=== PATIENT | male | born 1965 | race Hispanic/Latino ===

== ENCOUNTER 2016-11-14 06:24 | Day surgery (SDC) | payer MEDICARE ==
--- NOTE | 2016-11-12 11:59 | Anesthesia Consultation ---
Anesthesia Consult and Med Hx Date of service: 11/12/16 - Airway Anesthetic Teeth Evaluation: Poor (4 total broken teeth in the bottom, no teeth on the top) ROM Head & Neck: Adequate Mental/Hyoid Distance: Adequate Mallampati Class: Class III Intubation Access Assessment: Possibly Difficult - Pre-Operative Health Status ASA Pre-Surgery Classification: ASA3 Proposed Anesthetic Plan: MAC - Pulmonary Hx Smoking: Yes (smoked 3 p/d x 15 years) COPD: Yes Hx Sleep Apnea: Yes (uses CPAP) - Cardiovascular System Hx Hypertension: Yes Hx Coronary Artery Disease: No (EF 35-40%) Hx Heart Attack/AMI: No (CHF) Hx Cardia Arrhythmia: Yes (bradicardia) Hx Pacemaker: No - Central Nervous System Hx Seizures: Yes (" MINOR ,LITTLE '') Hx Psychiatric Problems: Yes (depression) - Endocrine Hx Non-Insulin Dependent Diabetes: Yes - Other Systems Hx Cancer: No Hx Obesity: Yes (super obesity BMI 61.8)
[2016-11-12 12:32] LABS: Basophils % (Auto) 0.3 % (0.0-1.8); Eosinophils % (Auto) 1.2 % (0.0-4.3); Hemoglobin 15.2 gm/dl (11.8-15.2); Mean Corpuscular HGB Conc 32 % (32-34); Mean Corpuscular Hemoglobin 29 pg (28-32); Mean Corpuscular Volume 88 fl (84-94); Platelet Count 107 K/mm3 (140-440); Red Blood Count 5.33 M/mm3 (3.65-5.03); White Blood Count 5.1 K/mm3 (4.5-11.0)
[2016-11-12 12:42] LABS: INR 1.11 (0.87-1.13)
[2016-11-12 12:43] LABS: Partial Thromboplastin Time 26.8 Sec. (24.2-36.6)
[2016-11-12 12:50] LABS: Alanine Aminotransferase 18 units/L (7-56); Albumin 3.4 g/dL (3.9-5); Albumin/Globulin Ratio 1.2 %; Alkaline Phosphatase 67 units/L (35-129); Anion Gap 16 mmol/L; BUN/Creatinine Ratio 13.75; Bilirubin,Total 0.5 mg/dL (0.1-1.2); Blood Urea Nitrogen 11 mg/dL (9-20); Calcium 8.6 mg/dL (8.4-10.2); Carbon Dioxide 24 mmol/L (22-30); Chloride 101.9 mmol/L (98-107); Glucose 403 mg/dL (75-100); Sodium 138 mmol/L (137-145); Total Protein 6.3 g/dL (6.3-8.2)
[~2016-11-14 06:24] MED LIST: ANCEF/STERILE WATER 2 GM/20 ML 2 GM/20 ML SYRINGE IV SCH; NACL 0.9% 1000 ML 1,000 ML IV SCH; NACL BACTERIOSTATIC INFILTRATI ONE; PEPCID IV NR; VERSED IV NR; ceFAZolin 2 GM in NACL 0.9% 100 ML IV ONE
[2016-11-14] MEDS ORDERED: DIPRIVAN 10 MG/ML IV ONE ×2 (06:47→07:58)
[2016-11-14] MEDS ORDERED: DILAUDID ONE (06:48)
[2016-11-14] MEDS ORDERED: VERSED ONE (06:48)
[2016-11-14] MEDS ORDERED: XYLOCAINE 1%/ EPI 1:100,000 INFILTRATI ONE ×2 (07:19→07:58)
[2016-11-14] MEDS ORDERED: MARCAINE 0.5% 30 ML INFILTRATI ONE (07:20)
--- NOTE | 2016-11-14 07:21 | Anesthesia Day of Surgery ---
Anesthesia Day of Surgery - Day of Surgery Patient Examined: Yes Patient H&P Reviewed: Yes Patient is NPO: Yes Beta Blockers: Yes Cardiac Clearance: Yes
[2016-11-14] MEDS ORDERED: MARCAINE 0.5% INFILTRATI ONE (07:58)
[2016-11-14] MEDS ORDERED: NACL 0.9% IR ONE (07:58)
[2016-11-14] MEDS ORDERED: XYLOCAINE MPF 2% ONE (08:18)
--- NOTE | 2016-11-14 08:26 | Discharge Summary ---
Short Stay Discharge Plan Activity: other (d/c when stable. 1999 roopa ADA diet. home health for local care. d/c packing Mon am. irrigate with 50% h202/NS momo. pack with mesalt qd) Weight Bearing Status: Full Weight Bearing Diet: other Wound: per wound nurse instructions Additional Instructions: aleve 1 po q 6-8 hrs prn for breakthrough pain Follow up with: RADHA MIGUEL MD [Staff Physician] - 11/19/16
[2016-11-14] MEDS ORDERED: ULTRAM PO PRN (09:46)
[2016-11-14 09:50] VITALS: BP 139/73
--- NOTE | 2016-11-14 09:54 | Operative Report ---
PREOPERATIVE DIAGNOSES: Infected back abscesses x 2, rule out infected sebaceous cyst, pending final pathology. POSTOPERATIVE DIAGNOSES: Infected back abscesses x 2, rule out infected sebaceous cyst, pending final pathology. PROCEDURE PERFORMED: I and D, debridement and packing of infected back nodules. SURGEON: Frederick Villafana M.D. ANESTHESIA: Local anesthetic with IV sedation. COMPLICATIONS: No complications. DESCRIPTION OF PROCEDURE: The patient was taken to the operating room, prepped and draped in usual sterile fashion. Both erythematous draining indurated nodules had been outlined with marking pencil. A 50% solution of 1% Xylocaine with epinephrine and 0.5% Marcaine plain was infiltrated over the area to be incised. Both nodules were removed in similar fashion. An 11 blade was used to incise the skin. Jagruti retractors were used to retract the skin. Needle tip electrocautery was used to dissect the nodules. During dissection, some purulence was noted. Aerobic and anaerobic cultures were taken. Both vessels were also sent fresh for tissue cultures and permanent pathology. The abscess cavities were irrigated copiously with saline and dried. Checked for hemostasis and noted to be dry. Both cavities were then packed with 2 inch iodoform gauze. Fluff and pressure dressings applied. The patient tolerated the procedure well and left the OR in stable condition. JOB# [id number] NOHEMY/YNES
--- NOTE | 2016-11-14 10:50 | Post Anesthesia Evaluation ---
- Post Anesthesia Evaluation Patient Participated: Yes Airway Patent: Yes Stable Respiratory Function: Yes Nausea/Vomiting: No Temp > 96.8F: Yes Pain Manageable: Yes Adequeate Hydration: Yes Anesthesia Complications: No
== END 2016-11-14 10:25 | disposition swing bed (61) ==
LOC: OR 06:24
PROVIDERS: ATTEND Surgery
DX: L02.212 Cutaneous abscess of back [any part, except buttock and flank] (principal); J44.9 Chronic obstructive pulmonary disease, unspecified; I48.91 Unspecified atrial fibrillation; F17.210 Nicotine dependence, cigarettes, uncomplicated; G47.30 Sleep apnea, unspecified; F32.9 Major depressive disorder, single episode, unspecified; E11.9 Type 2 diabetes mellitus without complications; E66.01 Morbid (severe) obesity due to excess calories; Z68.44 Body mass index [BMI] 60.0-69.9, adult
CPT/HCPCS: 10060; 36415; 80053; 82962; 85025; 85610; 85730; 87075; 87076; 87116; 87185; 87186; 88305; J0690; J1170; J2250; J2704; J7030; 88307; J1815

== ENCOUNTER 2017-10-01 12:04 | Inpatient (IN) | payer MEDICARE ==
[2017-10-01] MEDS ORDERED: ASPIRIN PO ONE (13:26)
--- NOTE | 2017-10-01 13:26 | Emergency Department Report ---
Blank Doc - Documentation Documentation: Patient is a 52-year-old male past medical history of diabetes hypertension and A. fib who is complaining of chest pain radiation to the left neck and arm. Patient states he occasionally gets chest discomfort with exertion that last just very briefly but since last night has had continuous chest discomfort also has some tingling in his bilateral legs as well. EKG shows A. fib with no STEMI. Patient removed to the main for further care.
[2017-10-01 13:46] LABS: Basophils % (Auto) 0.5 % (0.0-1.8); Eosinophils % (Auto) 0.7 % (0.0-4.3); Hematocrit 46.6 % (35.5-45.6); Lymphocytes # (Auto) 1.9 K/mm3 (1.2-5.4); Lymphocytes % (Auto) 28.7 % (13.4-35.0); Mean Corpuscular HGB Conc 32 % (32-34); Mean Corpuscular Hemoglobin 29 pg (28-32); Mean Corpuscular Volume 89 fl (84-94); Monocytes # (Auto) 0.7 K/mm3 (0.0-0.8); Monocytes % (Auto) 10.4 % (0.0-7.3); Platelet Count 127 K/mm3 (140-440); Red Blood Count 5.25 M/mm3 (3.65-5.03); Red Cell Distribution Width 14.8 % (13.2-15.2)
--- NOTE | 2017-10-01 13:59 | XRay Report ---
CHEST XRAY, 2 VIEWS: History: Chest pain. Findings: There is mild cardiomegaly. Pulmonary vessels are within normal limits. The lungs are clear and fully expanded. No infiltrate, pleural effusion or pneumothorax. Normal thoracic cage. IMPRESSION: Mild cardiomegaly.
[2017-10-01 14:00] LABS: Partial Thromboplastin Time 38.4 Sec. (24.2-36.6)
[2017-10-01 14:02] LABS: Alanine Aminotransferase 12 units/L (7-56); Albumin 3.3 g/dL (3.9-5); BUN/Creatinine Ratio 12; Blood Urea Nitrogen 13 mg/dL (9-20); Calcium 8.2 mg/dL (8.4-10.2); Hemolysis Index 53
[2017-10-01 14:04] LABS: INR 1.92 (0.87-1.13)
--- NOTE | 2017-10-01 17:59 | Emergency Department Report ---
ED Chest Pain HPI - General Chief Complaint: Chest Pain Stated Complaint: CPERNESTO Time Seen by Provider: 10/01/17 13:20 Source: patient Mode of arrival: Ambulatory Limitations: No Limitations - History of Present Illness Initial Comments: Patient is a 52-year-old male with a history of diabetes and A. fib who is presenting with chest pain. Patient states he normally will have some very mild chest pain last only seconds with exertion however since the last 24 hours he's had a heavy pressure in the chest that he states is a 7 out of 10 in severity with radiation to left neck and left arm. Patient also has some shortness of breath as well Quality: tightness, aching Improves With: nothing Worsens With: nothing - Related Data Home Medications Medication Instructions Recorded Confirmed Last Taken Amiodarone [Cordarone 200 MG TAB] 200 mg PO DAILY 07/03/16 11/11/16 11/13/16 18: 00 Carvedilol [Coreg] 6.25 mg PO BID 07/03/16 11/11/16 11/14/16 05:00 Digoxin 250 mcg PO DAILY 07/03/16 11/11/16 11/13/16 18:00 Fluticasone Propionate [Flovent 1 puff IH BID PRN 07/03/16 11/11/16 11/14/16 05: 00 Diskus] LORazepam [Ativan] 1 mg PO BID 07/03/16 11/11/16 11/14/16 05:00 Loratadine 10 mg PO DAILY 07/03/16 11/11/16 11/14/16 05:00 Nitroglycerin [Nitro Dur] 0.2 mg TD PRN PRN 07/03/16 11/14/16 06/10/16 Pravastatin Sodium [Pravastatin] 40 mg PO QHS 07/03/16 11/11/16 11/13/16 18:00 Torsemide [Demadex] 20 mg PO BID 07/03/16 11/11/16 11/13/16 18:00 Warfarin [Coumadin] 7.5 mg PO QDAY 07/03/16 11/14/16 11/07/16 hydrALAZINE [Apresoline TAB] 100 mg PO TID 07/03/16 11/11/16 11/14/16 05:00 Latanoprost 0.005% [Xalatan 0.005%] 1 drop OP QPM 11/11/16 11/14/16 11/13/16 18: 00 Sacubitril/Valsartan [Entresto 97 1 each PO QDAY 11/12/16 11/12/16 11/14/16 05: 00 mg-103 mg Tablet] Previous Rx's Medication Instructions Recorded Last Taken Type traMADol [Ultram 50 MG tab] 50 mg PO Q4HR PRN #20 tablet 11/14/16 Unknown Rx Allergies Allergy/AdvReac Type Severity Reaction Status Date / Time oxycodone Allergy Itching Verified 03/24/15 11:24 codeine AdvReac Itching Verified 03/24/15 11:24 Heart Score - HEART Score History: Highly suspicious EKG: Non-specific Age: 45-65 Risk factors: 1-2 risk factors Troponin: < normal limit HEART Score: 5 ED Review of Systems ROS: Stated complaint: CP, ERNESTO Other details as noted in HPI Comment: All other systems reviewed and negative ED Past Medical Hx - Past Medical History Hx Hypertension: Yes Hx Heart Attack/AMI: No (CHF) Hx Congestive Heart Failure: Yes Hx Diabetes: Yes (5 YRS) Hx GERD: Yes Hx Headaches / Migraines: Yes (MIGRAINES) Hx Seizures: Yes (" MINOR ,LITTLE '') Hx Kidney Stones: Yes Hx COPD: Yes Hx HIV: No Additional medical history: PAT. Chronic bilateral lower leg edema. Sleep apnea with C Pap. OBESITY - Surgical History Past Surgical History?: Yes Hx Pacemaker: No Additional Surgical History: kidney stone removal - Social History Smoking Status: Former Smoker Substance Use Type: Alcohol - Medications Home Medications: Home Medications Medication Instructions Recorded Confirmed Last Taken Type Amiodarone [Cordarone 200 MG TAB] 200 mg PO DAILY 07/03/16 11/11/16 11/13/16 18: 00 History Carvedilol [Coreg] 6.25 mg PO BID 07/03/16 11/11/16 11/14/16 05:00 History Digoxin 250 mcg PO DAILY 07/03/16 11/11/16 11/13/16 18:00 History Fluticasone Propionate [Flovent 1 puff IH BID PRN 07/03/16 11/11/16 11/14/16 05: 00 History Diskus] LORazepam [Ativan] 1 mg PO BID 07/03/16 11/11/1611/14/17 05:00 History Loratadine 10 mg PO DAILY 07/03/16 11/11/16 11/14/16 05:00 History Nitroglycerin [Nitro Dur] 0.2 mg TD PRN PRN 07/03/16 11/14/16 06/10/16 History Pravastatin Sodium [Pravastatin] 40 mg PO QHS 07/03/16 11/11/16 11/13/16 18:00 History Torsemide [Demadex] 20 mg PO BID 07/03/16 11/11/16 11/13/16 18:00 History Warfarin [Coumadin] 7.5 mg PO QDAY 07/03/16 11/14/16 11/07/16 History hydrALAZINE [Apresoline TAB] 100 mg PO TID 07/03/16 11/11/16 11/14/16 05:00 History Latanoprost 0.005% [Xalatan 0.005%] 1 drop OP QPM 11/11/16 11/14/16 11/13/16 18: 00 History Sacubitril/Valsartan [Entresto 97 1 each PO QDAY 11/12/16 11/12/16 11/14/16 05: 00 History mg-103 mg Tablet] traMADol [Ultram 50 MG tab] 50 mg PO Q4HR PRN #20 tablet 11/14/16 Unknown Rx ED Physical Exam - General Limitations: No Limitations General appearance: alert, in no apparent distress - Head Head exam: Present: atraumatic, normocephalic - Eye Eye exam: Present: normal appearance - ENT ENT exam: Present: mucous membranes moist - Neck Neck exam: Present: normal inspection - Respiratory Respiratory exam: Present: normal lung sounds bilaterally. Absent: respiratory distress, wheezes, rales, rhonchi - Cardiovascular Cardiovascular Exam: Present: regular rate, irregular rhythm. Absent: systolic murmur, diastolic murmur, rubs, gallop - GI/Abdominal GI/Abdominal exam: Present: soft, normal bowel sounds - Rectal Rectal exam: Present: deferred - Extremities Exam Extremities exam: Present: normal inspection - Back Exam Back exam: Present: normal inspection - Neurological Exam Neurological exam: Present: alert, oriented X3 - Psychiatric Psychiatric exam: Present: normal affect, normal mood - Skin Skin exam: Present: warm, dry, intact, normal color. Absent: rash ED Course Vital Signs 10/01/17 12:32 Temperature 98.3 F Pulse Rate 75 Respiratory 16 Rate Blood Pressure 112/70 O2 Sat by Pulse 93 Oximetry MO score - Mo Score Age > 65: (0) No Aspirin use within the Past 7 Days: (0) No 3 or more CAD Risk Factors: (1) Yes 2 or more Angina events in past 24 hrs: (0) No Known CAD with more than 50% Stenosis: (1) Yes Elevated Cardiac Markers: (0) No ST Deviation Greater than 0.5mm: (0) No MO Score: 2 ED Medical Decision Making - Lab Data Result diagrams: 10/01/17 13:29 10/01/17 13:29 - Medical Decision Making She was initially screened but was not sent over to the main please see my screening note. Patient's R studies are back and patient will be admitted to Dr. Johnston the hospitalist service for continued care Critical care attestation.: If time is entered above; I have spent that time in minutes in the direct care of this critically ill patient, excluding procedure time. ED Disposition Clinical Impression: Chest pain Qualifiers: Chest pain type: chest pain due to myocardial ischemia Ischemic chest pain type : unspecified angina pectoris type Qualified Code(s): I20.9 - Angina pectoris, unspecified Disposition: -09 OP ADMIT IP TO THIS HOSP Is pt being admited?: Yes Does the pt Need Aspirin: No Condition: Stable Instructions: Chest Pain (ED) Referrals: PRIMARY CARE, [Primary Care Provider] - 3-5 Days
--- NOTE | 2017-10-01 18:24 | History and Physical Report ---
History of Present Illness Chief complaint: My chest hurts History of present illness: 52 YO Male with MO, HTN, Atrial Fib, COPD, Systolic CHF with EF of 30%, GERD, Seizure Disorder, Migraine Headache, COPD, AILEEN, DM presents to ED for evaluation. Pt states that he has experienced pain in his chest for the past 1 day with worsening symptoms over the past 6 hours. Pt states that his chest pain is 7/10, Substernal, Radiates to his left arm and neck, associated with shortness of breath, worsens with exertion, no improved with rest. Pt denies fever, chills, Palpitations, NVD, Syncope, Productive cough, Prolonged immobility/travel, Individual/Family history of DVT/PE, Trauma, Hemoptysis, BRBPR, Unintentional weight loss, night sweats, heavy lifting, or recent ill contacts. Pt seen and evaluated in ED and found to have CHF Decompensation, as well as Angina at rest. Pt Admitted to telemetry. Past History Past Medical History: atrial fib, COPD, diabetes, GERD, heart failure, migraines , seizures, other (AILEEN) Past Surgical History: Other (Kidney stone extraction) Social history: , lives with family. denies: smoking, alcohol abuse, prescription drug abuse Family history: diabetes, hypertension Medications and Allergies Allergies Allergy/AdvReac Type Severity Reaction Status Date / Time oxycodone Allergy Itching Verified 03/24/15 11:24 codeine AdvReac Itching Verified 03/24/15 11:24 Home Medications Medication Instructions Recorded Confirmed Last Taken Type Amiodarone [Cordarone 200 MG TAB] 200 mg PO DAILY 07/03/16 10/01/17 09/30/17 History Carvedilol [Coreg] 6.25 mg PO BID 07/03/16 10/01/17 10/01/17 History Digoxin 250 mcg PO QPM 07/03/16 10/01/17 09/30/17 History Fluticasone Propionate [Flovent 1 puff IH BID PRN 07/03/16 10/01/17 10/01/17 History Diskus] LORazepam [Ativan] 1 mg PO BID 07/03/16 10/01/17 10/01/17 History Pravastatin Sodium [Pravastatin] 40 mg PO QPM 07/03/16 10/01/17 09/30/17 History Torsemide [Demadex] 20 mg PO BID 07/03/16 10/01/17 10/01/17 History Warfarin [Coumadin] 7.5 mg PO DAILY 07/03/16 10/01/17 09/30/17 History hydrALAZINE [Apresoline TAB] 100 mg PO TID 07/03/16 10/01/17 10/01/17 History Sacubitril/Valsartan [Entresto 97 1 each PO BID 11/12/16 10/01/17 10/01/17 History mg-103 mg Tablet] Insulin Aspart Protam & Aspart 60 unit SQ TID 10/01/17 10/01/17 10/01/17 History [NovoLOG Mix 70-30 Flexpen] Review of Systems Constitutional: no weight loss, no weight gain, no fever, no chills Ears, nose, mouth and throat: no ear pain, no ear discharge, no tinnitis, no decreased hearing, no nose pain Cardiovascular: chest pain, shortness of breath, no orthopnea, no palpitations, no rapid/irregular heart beat Respiratory: no cough, no cough with sputum, no excessive sputum, no hemoptysis Gastrointestinal: no abdominal pain, no nausea, no vomiting, no diarrhea, no constipation Genitourinary Male: no dysuria, no hematuria, no urinary frequency, no urinary hesitancy Rectal: no pain, no incontinence, no bleeding Musculoskeletal: no neck pain, no shooting arm pain, no arm numbness/tingling, no low back pain Integumentary: no rash, no pruritis, no redness, no sores, no wounds Neurological: no head injury, no transient paralysis, no paralysis, no weakness , no parathesias, no numbness, no tingling Psychiatric: no anxiety, no memory loss, no change in sleep habits, no sleep disturbances, no insomnia, no hypersomnia Endocrine: no cold intolerance, no heat intolerance, no polyphagia, no excessive thirst, no polydipsia, no polyuria Hematologic/Lymphatic: no easy bruising, no easy bleeding, no lymphadenopathy, no lymphedema Allergic/Immunologic: no urticaria, no allergic rhinitis, no wheezing, no persistent infections, no anaphylaxis, no angioedema Exam - Constitutional Vitals: Temp Pulse Resp BP Pulse Ox 98.3 F 75 22 112/70 99 10/01/17 12:32 10/01/17 12:32 10/01/17 18:04 10/01/17 12:32 10/01/17 18:04 General appearance: Present: mild distress, obese - EENT Eyes: Present: PERRL ENT: hearing intact, clear oral mucosa - Neck Neck: Present: supple, normal ROM - Respiratory Respiratory effort: normal Respiratory: bilateral: CTA - Cardiovascular Rhythm: irregularly irregular - Extremities Extremities: pulses symmetrical, No edema Extremity abnormal: edema Peripheral Pulses: within normal limits - Abdominal General gastrointestinal: Present: soft, non-tender, non-distended, normal bowel sounds Male genitourinary: Present: normal - Integumentary Integumentary: Present: clear, warm, dry - Musculoskeletal Musculoskeletal: gait normal, strength equal bilaterally - Psychiatric Psychiatric: appropriate mood/affect, intact judgment & insight - Neurologic Neurologic: CNII-XII intact, moves all extremities Results - Labs CBC & Chem 7: 10/01/17 13:29 10/01/17 13:29 Labs: Abnormal lab results 10/01/17 10/01/17 10/01/17 Range/Units 13:29 13:29 13:29 RBC 5.25 H (3.65-5.03) M/mm3 Hct 46.6 H (35.5-45.6) % Plt Count 127 L (140-440) K/mm3 [place] % (Auto) 10.4 H (0.0-7.3) % PT 23.2 H (12.2-14.9) Sec. INR 1.92 H (0.87-1.13) APTT 38.4 H (24.2-36.6) Sec. Glucose 260 H (75-100) mg/dL Calcium 8.2 L (8.4-10.2) mg/dL NT-Pro-B Natriuret Pep 1362 H (0-900) pg/mL Albumin 3.3 L (3.9-5) g/dL Assessment and Plan - Patient Problems (1) Systolic CHF, acute Current Visit: Yes Status: Acute Plan to address problem: Afterload reduction, fluid restriction, monitor uop q shift, cardiology consulted, telemetry, serial cardiac enzymes, ekg, supplemental oxygen, (2) Angina at rest Current Visit: Yes Status: Acute Plan to address problem: Serial cardiac enzymes, EKG, NItro tabs, supplemental oxygen, pain control, aspirin. (3) COPD (chronic obstructive pulmonary disease) Current Visit: Yes Status: Acute Plan to address problem: supplemental oxygen, nebs, NIPPV as clinically indicated, pulmonary toilet, (4) Diabetes Current Visit: Yes Status: Acute Plan to address problem: ADA diet, insulin, accu check (5) Morbid obesity with BMI of 50.0-59.9, adult Current Visit: No Status: Chronic Plan to address problem: Balanced diet, incrased physical activity as discharge, outpatient bariatric surgery (6) Sleep apnea Current Visit: No Status: Chronic Plan to address problem: NIPPV, supplemental oxygen, supportive care. (7) Atrial fibrillation Current Visit: Yes Status: Acute Qualifiers: Atrial fibrillation type: chronic Qualified Code(s): I48.2 - Chronic atrial fibrillation Plan to address problem: Rate currently controlled. Continue therapeutic anticoagulation, continue rate control, telemetry monitoring, digoxin level (8) DVT prophylaxis Current Visit: Yes Status: Acute
[2017-10-01] MEDS ORDERED: TYLENOL PO PRN (18:27)
[2017-10-01] MEDS ORDERED: ZOFRAN IV PRN (18:27)
[2017-10-01] MEDS ORDERED: BABY ASPIRIN PO STA (18:27)
[2017-10-01] MEDS ORDERED: NITROSTAT SL PRN (18:27)
[2017-10-01] MEDS ORDERED: SODIUM CHLORIDE FLUSH SYRINGE 10 ML IV PRN (18:27)
[2017-10-01] MEDS ORDERED: NITRO DUR TD PRN (18:32)
[2017-10-01] MEDS ORDERED: NON-FORMULARY (Fluticasone Propionate [Flovent Diskus] 1 PUFF) IH PRN (18:32)
[2017-10-01] MEDS ORDERED: ULTRAM PO PRN (18:32)
[2017-10-01] MEDS: APRESOLINE PO SCH (20:21)
[2017-10-01] MEDS ORDERED: NON-FORMULARY (Pravastatin Sodium [Pravastatin] 40 MG) PO SCH (22:00)
[2017-10-01] MEDS: PRAVACHOL PO SCH (22:50)
[2017-10-01] MEDS: COREG PO SCH (22:50)
[2017-10-01] MEDS: ATIVAN PO SCH (22:50)
[2017-10-02] MEDS ORDERED: DEMADEX PO SCH (06:00)
[2017-10-02] MEDS: PULMICORT IH SCH ×2 (07:40→19:52)
[2017-10-02] MEDS: PROVENTIL IH PRN (07:40)
[2017-10-02] MEDS: APRESOLINE PO SCH ×3 (08:24→21:17)
[2017-10-02] MEDS ORDERED: NON-FORMULARY (Sacubitril/Valsartan [Entresto 97 Mg-103 Mg Tablet] 1 EACH) PO SCH (10:00)
[2017-10-02] MEDS: CORDARONE PO SCH (10:18)
[2017-10-02] MEDS: COREG PO SCH ×2 (10:19→21:18)
[2017-10-02] MEDS: CLARITIN PO SCH (10:19)
[2017-10-02] MEDS: LANOXIN PO SCH (10:19)
[2017-10-02] MEDS: ATIVAN PO SCH ×2 (10:19→21:18)
--- NOTE | 2017-10-02 10:48 | Consultation ---
History of Present Illness Consult date: 10/02/17 Consult reason: congestive heart failure History of present illness: This is a 52yr old morbidly obese male who presents with complaints of shortness of breath. Patient reports worsening shortness of breath with minimal exertion and intermittent chest pain, Patient has a history of diabetes and admits to 35lb weight gain since initiated on insulin. A chest xray reports cardiomegaly but no interstitial edema. Patient also has a history of dilated nonischemic cardiomyopathy, LVEF 30-35%, non-obstructive CAD by cath 2014, paroxysmal afib on coumadin and COPD. His ECG shows atrial fibrillation with a well controlled ventricular rate. INR 1.92 on initial workup. Past History Past Medical History: atrial fib, COPD, diabetes, heart failure, other (AILEEN) Social history: , lives with family Family history: diabetes, hypertension Medications and Allergies Allergies Allergy/AdvReac Type Severity Reaction Status Date / Time oxycodone Allergy Itching Verified 03/24/15 11:24 codeine AdvReac Itching Verified 03/24/15 11:24 Home Medications Medication Instructions Recorded Confirmed Last Taken Type Amiodarone [Cordarone 200 MG TAB] 200 mg PO DAILY 07/03/16 10/01/17 09/30/17 History Carvedilol [Coreg] 6.25 mg PO BID 07/03/16 10/01/17 10/01/17 History Digoxin 250 mcg PO QPM 07/03/16 10/01/17 09/30/17 History Fluticasone Propionate [Flovent 1 puff IH BID PRN 07/03/16 10/01/17 10/01/17 History Diskus] LORazepam [Ativan] 1 mg PO BID 07/03/16 10/01/17 10/01/17 History Pravastatin Sodium [Pravastatin] 40 mg PO QPM 07/03/16 10/01/17 09/30/17 History Torsemide [Demadex] 20 mg PO BID 07/03/16 10/01/17 10/01/17 History Warfarin [Coumadin] 7.5 mg PO DAILY 07/03/16 10/01/17 09/30/17 History hydrALAZINE [Apresoline TAB] 100 mg PO TID 07/03/16 10/01/17 10/01/17 History Sacubitril/Valsartan [Entresto 97 1 each PO BID 11/12/16 10/01/17 10/01/17 History mg-103 mg Tablet] Insulin Aspart Protam & Aspart 60 unit SQ TID 10/01/17 10/01/17 10/01/17 History [NovoLOG Mix 70-30 Flexpen] Active Meds: Active Medications Acetaminophen (Tylenol) 650 mg PO Q4H PRN PRN Reason: Pain MILD(1-3)/Fever >100.5/TORO Albuterol (Proventil) 2.5 mg IH Q4HRT PRN PRN Reason: Shortness Of Breath Last Admin: 10/02/17 07:40 Dose: 2.5 mg Amiodarone HCl (Cordarone) 200 mg PO DAILY [facility] Last Admin: 10/02/17 10:18 Dose: 200 mg Budesonide (Pulmicort) 0.5 mg IH Q12HRT [facility] Last Admin: 10/02/17 07:40 Dose: 0.5 mg Carvedilol (Coreg) 6.25 mg PO BID [facility] Last Admin: 10/02/17 10:19 Dose: 6.25 mg Digoxin (Lanoxin) 0.25 mg PO DAILY [facility] Last Admin: 10/02/17 10:19 Dose: 0.25 mg Hydralazine HCl (Apresoline) 100 mg PO TID [facility] Last Admin: 10/02/17 08:24 Dose: 100 mg Latanoprost (Xalatan 0.005%) 1 drops OD QPM [facility] Loratadine (Claritin) 10 mg PO DAILY [facility] Last Admin: 10/02/17 10:19 Dose: 10 mg Lorazepam (Ativan) 1 mg PO BID [facility] Last Admin: 10/02/17 10:19 Dose: 1 mg Miscellaneous Medication (Sacubitril/Valsartan [Entresto 97 Mg-103 Mg Tablet]) 1 each PO QDAY [facility] Nitroglycerin (Nitrostat) 0.4 mg SL Q5M PRN PRN Reason: Chest Pain Nitroglycerin (Nitro Dur) 0.2 mg TD PRN PRN PRN Reason: Angina Ondansetron HCl (Zofran) 4 mg IV Q8H PRN PRN Reason: N/V unrelieved by Reglan Pravastatin Sodium (Pravachol) 40 mg PO QHS [facility] Last Admin: 10/01/17 22:50 Dose: 40 mg Sodium Chloride (Sodium Chloride Flush Syringe 10 Ml) 10 ml IV PRN PRN PRN Reason: LINE FLUSH Torsemide (Demadex) 20 mg PO BID@0600,1800 CEZAR Last Admin: 10/02/17 06:35 Dose: 20 mg Tramadol HCl (Ultram) 50 mg PO Q4HR PRN PRN Reason: Pain Warfarin Sodium (Coumadin) 7.5 mg PO QDAY@1700 [facility] PRN Reason: Protocol Physical Examination Vital Signs Temp Pulse Resp BP Pulse Ox 98.3 F 75 16 112/70 93 10/01/17 12:32 10/01/17 12:32 10/01/17 12:32 10/01/17 12:32 10/01/17 12:32 General appearance: no acute distress, obese HEENT: Positive: PERRL Cardiac: Positive: irregularly irregular Neuro: Positive: Grossly Intact Extremities: Present: edema Results 10/01/17 13:29 10/01/17 13:29 Cardiac Enzymes 10/01/17 Range/Units 13:29 AST 14 (5-40) units/L Coagulation 10/01/17 Range/Units 13:29 PT 23.2 H (12.2-14.9) Sec. INR 1.92 H (0.87-1.13) APTT 38.4 H (24.2-36.6) Sec. CBC 10/01/17 Range/Units 13:29 WBC 6.7 (4.5-11.0) K/mm3 RBC 5.25 H (3.65-5.03) M/mm3 Hgb 15.0 (11.8-15.2) gm/dl Hct 46.6 H (35.5-45.6) % Plt Count 127 L (140-440) K/mm3 Lymph # 1.9 (1.2-5.4) K/mm3 Petroleum # 0.7 (0.0-0.8) K/mm3 Eos # 0.0 (0.0-0.4) K/mm3 Baso # 0.0 (0.0-0.1) K/mm3 Comprehensive Metabolic Panel 10/01/17 Range/Units 13:29 Sodium 142 (137-145) mmol/L Potassium 4.1 (3.6-5.0) mmol/L Chloride 101.7 (98-107) mmol/L Carbon Dioxide 29 (22-30) mmol/L BUN 13 (9-20) mg/dL Creatinine 1.1 (0.8-1.5) mg/dL Glucose 260 H (75-100) mg/dL Calcium 8.2 L (8.4-10.2) mg/dL AST 14 (5-40) units/L ALT 12 (7-56) units/L Alkaline Phosphatase 58 (35-129) units/L Total Protein 6.5 (6.3-8.2) g/dL Albumin 3.3 L (3.9-5) g/dL Assessment and Plan Atypical chest pain Shortness of breath with minimal exertion C 2014- Luminal irregularities in a left dominant circulation, LVEF 30%, LVEDP 36 mm Hg Dilated Nonischemic cardiomyopathy LVEF 30-35% on echo 2014 Paroxysmal afib on coumadin for oral anticoagulation. INR 1.92 on presentation. COPD DM Hypertension AILEEN
--- NOTE | 2017-10-02 10:56 | Progress Note ---
Assessment and Plan Assessment and plan: 52 YO Male with MO, HTN, Atrial Fib, COPD, Systolic CHF with EF of 30%, GERD, Seizure Disorder, Migraine Headache, COPD, AILEEN, DM with SOB, and chf exacerbation Systolic CHF, acute case dw with cardiology, continue IV lasix, optimize meds chest pain likely due to CHF, continue to rx as stated above COPD (chronic obstructive pulmonary disease) not in exacerbation, nebs prn Acute respiratory failure with hypoxia continue CPAP and oxygen as needed Diabetes SSI, check a1c, add basal and bolus insulin Morbid obesity with BMI of 50.0-59.9, adult Balanced diet, incrased physical activity as discharge, outpatient bariatric surgery Sleep apnea CPAP while asleep Atrial fibrillation with hypercoaguable state Rate currently controlled. Continue therapeutic anticoagulation, continue rate control History Interval history: co sob, patino, and orthopnea, and LE edema no CP, no cough, no sputum no n/v/d Hospitalist Physical - Constitutional Vitals: Temp Pulse Resp BP Pulse Ox 99.8 F H 68 20 148/83 97 10/02/17 04:07 10/02/17 04:08 10/02/17 04:07 10/02/17 04:07 10/02/17 07:40 General appearance: Present: mild distress, obese - EENT Eyes: Present: PERRL ENT: hearing intact - Neck Neck: Present: supple - Respiratory Respiratory effort: labored Respiratory: bilateral: rales - Cardiovascular Rhythm: irregularly irregular Heart Sounds: Present: S1 & S2 - Extremities Extremities: no ischemia Extremity abnormal: edema Peripheral Pulses: within normal limits - Abdominal General gastrointestinal: soft, non-tender - Integumentary Integumentary: Present: clear, warm - Psychiatric Psychiatric: appropriate mood/affect - Neurologic Neurologic: CNII-XII intact, moves all extremities Results - Labs CBC & Chem 7: 10/01/17 13:29 10/03/17 00:05 Labs: Laboratory Last Values WBC 6.7 K/mm3 (4.5-11.0) 10/01/17 13:29 RBC 5.25 M/mm3 (3.65-5.03) H 10/01/17 13:29 Hgb 15.0 gm/dl (11.8-15.2) 10/01/17 13:29 Hct 46.6 % (35.5-45.6) H 10/01/17 13:29 MCV 89 fl (84-94) 10/01/17 13:29 MCH 29 pg (28-32) 10/01/17 13: MCHC 32 % (32-34) 10/01/17 13:29 RDW 14.8 % (13.2-15.2) 10/01/17 13:29 Plt Count 127 K/mm3 (140-440) L 10/01/17 13:29 Lymph % (Auto) 28.7 % (13.4-35.0) 10/01/17 13:29 [place] % (Auto) 10.4 % (0.0-7.3) H 10/01/17 13: Eos % (Auto) 0.7 % (0.0-4.3) 10/01/17 13: Baso % (Auto) 0.5 % (0.0-1.8) 10/01/17 13: Lymph # 1.9 K/mm3 (1.2-5.4) 10/01/17 13: [place] # 0.7 K/mm3 (0.0-0.8) 10/01/17 13: Eos # 0.0 K/mm3 (0.0-0.4) 10/01/17 13: Baso # 0.0 K/mm3 (0.0-0.1) 10/01/17 13:29 Seg Neutrophils % 59.7 % (40.0-70.0) 10/01/17 13: Seg Neutrophils # 4.0 K/mm3 (1.8-7.7) 10/01/17 13:29 PT 23.2 Sec. (12.2-14.9) H 10/01/17 13:29 INR 1.92 (0.87-1.13) H 10/01/17 13:29 APTT 38.4 Sec. (24.2-36.6) H 10/01/17 13:29 Sodium 142 mmol/L (137-145) 10/01/17 13:29 Potassium 4.1 mmol/L (3.6-5.0) 10/01/17 13:29 Chloride 101.7 mmol/L (98-107) 10/01/17 13:29 Carbon Dioxide 29 mmol/L (22-30) 10/01/17 13:29 Anion Gap 15 mmol/L 10/01/17 13:29 BUN 13 mg/dL (9-20) 10/01/17 13:29 Creatinine 1.1 mg/dL (0.8-1.5) 10/01/17 13:29 Estimated GFR > 60 ml/min 10/01/17 13:29 BUN/Creatinine Ratio 12 % 10/01/17 13:29 Glucose 260 mg/dL (75-100) H 10/01/17 13:29 POC Glucose 175 (70-105) H 10/02/17 08:11 Calcium 8.2 mg/dL (8.4-10.2) L 10/01/17 13:29 Total Bilirubin 0.80 mg/dL (0.1-1.2) 10/01/17 13:29 AST 14 units/L (5-40) 10/01/17 13:29 ALT 12 units/L (7-56) 10/01/17 13:29 Alkaline Phosphatase 58 units/L (35-129) 10/01/17 13:29 Troponin T < 0.010 ng/mL (0.00-0.029) 10/02/17 00:20 NT-Pro-B Natriuret Pep 1362 pg/mL (0-900) H 10/01/17 13:29 Total Protein 6.5 g/dL (6.3-8.2) 10/01/17 13:29 Albumin 3.3 g/dL (3.9-5) L 10/01/17 13:29 Albumin/Globulin Ratio 1.0 % 10/01/17 13:29 Digoxin 0.5 ng/mL (0.9-2.0) L 10/02/17 07:25
[2017-10-02] MEDS: K-DUR PO SCH (13:53)
[2017-10-02] MEDS: ZAROXOLYN PO SCH (13:54)
[2017-10-02] MEDS: COUMADIN PO SCH ×2 (17:30→20:25)
[2017-10-02] MEDS: LASIX IV SCH ×2 (18:30→20:25)
[2017-10-02] MEDS: XALATAN 0.005% OD SCH (20:26)
[2017-10-02] MEDS: PRAVACHOL PO SCH (21:17)
[2017-10-03 00:37] LABS: BUN/Creatinine Ratio 13; Blood Urea Nitrogen 15 mg/dL (9-20); Calcium 8.2 mg/dL (8.4-10.2); Hemolysis Index 28
[2017-10-03 06:10] LABS: INR 1.66 (0.87-1.13)
[2017-10-03] MEDS: LASIX IV SCH ×2 (06:14→18:08)
[2017-10-03] MEDS: PROVENTIL IH PRN (08:41)
[2017-10-03] MEDS: PULMICORT IH SCH ×2 (08:41→20:18)
--- NOTE | 2017-10-03 09:06 | Progress Note ---
Assessment and Plan - Patient Problems (1) Angina at rest Current Visit: Yes Status: Acute (2) Atrial fibrillation Current Visit: Yes Status: Acute Qualifiers: Atrial fibrillation type: chronic Qualified Code(s): I48.2 - Chronic atrial fibrillation (3) COPD (chronic obstructive pulmonary disease) Current Visit: Yes Status: Acute (4) Diabetes Current Visit: Yes Status: Acute (5) Cardiomyopathy Current Visit: No Status: Chronic (6) HTN (hypertension), benign Current Visit: No Status: Chronic (7) Morbid obesity with BMI of 50.0-59.9, adult Current Visit: No Status: Chronic (8) AILEEN on CPAP Current Visit: No Status: Chronic Subjective Date of service: 10/03/17 Interval history: FEELS BETTER Objective Vital Signs Temp Pulse Pulse Resp Resp BP Pulse Ox 10/03/17 05:23 97.4 F L 70 20 131/77 97 10/03/17 00:00 65 10/02/17 23:10 98.7 F 69 20 139/87 93 10/02/17 22:35 80 20 95 10/02/17 22:00 20 10/02/17 20:39 97.5 F L 66 20 144/87 92 10/02/17 19:57 66 18 10/02/17 19:52 66 18 95 10/02/17 17:54 98.0 F 82 22 169/96 95 10/02/17 11:50 97.8 F 63 24 117/65 94 - Physical Examination General: No Apparent Distress HEENT: Positive: PERRL Neck: Positive: neck supple Cardiac: Positive: Irregularly Regular Lungs: Positive: clear to auscultation Neuro: Positive: Grossly Intact Abdomen: Positive: Soft Extremities: Present: edema (MILD) - Labs and Meds Coagulation 10/03/17 Range/Units 05:02 PT 20.6 H (12.2-14.9) Sec. INR 1.66 H (0.87-1.13) Comprehensive Metabolic Panel 10/03/17 Range/Units 00:05 Sodium 138 (137-145) mmol/L Potassium 3.7 (3.6-5.0) mmol/L Chloride 96.8 L (98-107) mmol/L Carbon Dioxide 26 (22-30) mmol/L BUN 15 (9-20) mg/dL Creatinine 1.2 (0.8-1.5) mg/dL Glucose 268 H (75-100) mg/dL Calcium 8.2 L (8.4-10.2) mg/dL
[2017-10-03] MEDS: COREG PO SCH ×2 (10:14→21:27)
[2017-10-03] MEDS: CORDARONE PO SCH (10:14)
[2017-10-03] MEDS: CLARITIN PO SCH (10:15)
[2017-10-03] MEDS: ZAROXOLYN PO SCH (10:15)
[2017-10-03] MEDS: LANOXIN PO SCH (10:15)
[2017-10-03] MEDS: K-DUR PO SCH (10:15)
[2017-10-03] MEDS: APRESOLINE PO SCH ×3 (10:15→21:27)
[2017-10-03] MEDS: ATIVAN PO SCH ×2 (10:16→21:27)
--- NOTE | 2017-10-03 12:58 | Progress Note ---
Assessment and Plan Assessment and plan: 52 YO Male with MO, HTN, Atrial Fib, COPD, Systolic CHF with EF of 30%, GERD, Seizure Disorder, Migraine Headache, COPD, AILEEN, DM with SOB, and chf exacerbation Systolic CHF, acute case dw with cardiology, continue IV lasix, optimize meds chest pain likely due to CHF, continue to rx as stated above COPD (chronic obstructive pulmonary disease) not in exacerbation, nebs prn Acute respiratory failure with hypoxia continue CPAP and oxygen as needed Diabetes SSI, check a1c, add basal and bolus insulin Morbid obesity with BMI of 50.0-59.9, adult Balanced diet, incrased physical activity as discharge, outpatient bariatric surgery Sleep apnea CPAP while asleep Atrial fibrillation with hypercoaguable state Rate currently controlled. Continue therapeutic anticoagulation, continue rate control History Interval history: co sob, patino, and orthopnea, and LE edema no CP, no cough, no sputum no n/v/d Hospitalist Physical - Physical exam Narrative exam: General appearance: Present: mild distress, obese - EENT Eyes: Present: PERRL ENT: hearing intact - Neck Neck: Present: supple - Respiratory Respiratory effort: labored Respiratory: bilateral: rales - Cardiovascular Rhythm: irregularly irregular Heart Sounds: Present: S1 & S2 - Extremities Extremities: no ischemia Extremity abnormal: edema Peripheral Pulses: within normal limits - Abdominal General gastrointestinal: soft, non-tender - Integumentary Integumentary: Present: clear, warm - Psychiatric Psychiatric: appropriate mood/affect - Neurologic Neurologic: CNII-XII intact, moves all extremities - Constitutional Vitals: Temp Pulse Resp BP Pulse Ox 97.7 F 88 18 130/71 94 10/03/17 09:09 10/03/17 10:15 10/03/17 09:09 10/03/17 10:15 10/03/17 09:09 General appearance: Present: no acute distress, obese Results - Labs CBC & Chem 7: 10/01/17 13:29 10/03/17 00:05 Labs: Laboratory Last Values WBC 6.7 K/mm3 (4.5-11.0) 10/01/17 13:29 RBC 5.25 M/mm3 (3.65-5.03) H 10/01/17 13:29 Hgb 15.0 gm/dl (11.8-15.2) 10/01/17 13:29 Hct 46.6 % (35.5-45.6) H 10/01/17 13: MCV 89 fl (84-94) 10/01/17 13: MCH 29 pg (28-32) 10/01/17 13:29 MCHC 32 % (32-34) 10/01/17 13: RDW 14.8 % (13.2-15.2) 10/01/17 13:29 Plt Count 127 K/mm3 (140-440) L 10/01/17 13:29 Lymph % (Auto) 28.7 % (13.4-35.0) 10/01/17 13:29 [place] % (Auto) 10.4 % (0.0-7.3) H 10/01/17 13: Eos % (Auto) 0.7 % (0.0-4.3) 10/01/17 13: Baso % (Auto) 0.5 % (0.0-1.8) 10/01/17 13: Lymph # 1.9 K/mm3 (1.2-5.4) 10/01/17 13:29 [place] # 0.7 K/mm3 (0.0-0.8) 10/01/17 13: Eos # 0.0 K/mm3 (0.0-0.4) 10/01/17 13: Baso # 0.0 K/mm3 (0.0-0.1) 10/01/17 13: Seg Neutrophils % 59.7 % (40.0-70.0) 10/01/17 13: Seg Neutrophils # 4.0 K/mm3 (1.8-7.7) 10/01/17 13:29 PT 20.6 Sec. (12.2-14.9) H 10/03/17 05:02 INR 1.66 (0.87-1.13) H 10/03/17 05:02 APTT 38.4 Sec. (24.2-36.6) H 10/01/17 13:29 Sodium 138 mmol/L (137-145) 10/03/17 00:05 Potassium 3.7 mmol/L (3.6-5.0) 10/03/17 00:05 Chloride 96.8 mmol/L (98-107) L 10/03/17 00:05 Carbon Dioxide 26 mmol/L (22-30) 10/03/17 00:05 Anion Gap 19 mmol/L 10/03/17 00:05 BUN 15 mg/dL (9-20) 10/03/17 00:05 Creatinine 1.2 mg/dL (0.8-1.5) 10/03/17 00:05 Estimated GFR > 60 ml/min 10/03/17 00:05 BUN/Creatinine Ratio 13 % 10/03/17 00:05 Glucose 268 mg/dL (75-100) H 10/03/17 00:05 POC Glucose 249 (70-105) H 10/03/17 12:17 Calcium 8.2 mg/dL (8.4-10.2) L 10/03/17 00:05 Total Bilirubin 0.80 mg/dL (0.1-1.2) 10/01/17 13:29 AST 14 units/L (5-40) 10/01/17 13:29 ALT 12 units/L (7-56) 10/01/17 13:29 Alkaline Phosphatase 58 units/L (35-129) 10/01/17 13:29 Troponin T < 0.010 ng/mL (0.00-0.029) 10/02/17 00:20 NT-Pro-B Natriuret Pep 1362 pg/mL (0-900) H 10/01/17 13:29 Total Protein 6.5 g/dL (6.3-8.2) 10/01/17 13:29 Albumin 3.3 g/dL (3.9-5) L 10/01/17 13:29 Albumin/Globulin Ratio 1.0 % 10/01/17 13:29 Digoxin 0.5 ng/mL (0.9-2.0) L 10/02/17 07:25
[2017-10-03] MEDS: COUMADIN PO SCH (18:08)
[2017-10-03] MEDS: XALATAN 0.005% OD SCH (19:24)
[2017-10-03] MEDS: NOVOLOG SUB-Q SCH (21:27)
[2017-10-03] MEDS: PRAVACHOL PO SCH (21:27)
[2017-10-03] MEDS ORDERED: D50W (25GM) Syringe IV PRN (23:48)
[2017-10-04 05:58] LABS: Basophils % (Auto) 0.5 % (0.0-1.8); Eosinophils # (Auto) 0.1 K/mm3 (0.0-0.4); Eosinophils % (Auto) 1.1 % (0.0-4.3); Hematocrit 48.3 % (35.5-45.6); Hemoglobin 15.5 gm/dl (11.8-15.2); Lymphocytes % (Auto) 29.8 % (13.4-35.0); Mean Corpuscular HGB Conc 32 % (32-34); Mean Corpuscular Hemoglobin 28 pg (28-32); Mean Corpuscular Volume 88 fl (84-94); Monocytes # (Auto) 0.6 K/mm3 (0.0-0.8); Platelet Count 159 K/mm3 (140-440); Red Blood Count 5.49 M/mm3 (3.65-5.03); Red Cell Distribution Width 14.5 % (13.2-15.2)
[2017-10-04 06:11] LABS: Calcium 9.1 mg/dL (8.4-10.2)
[2017-10-04 06:23] LABS: INR 1.63 (0.87-1.13)
[2017-10-04] MEDS: LASIX IV SCH ×2 (06:32→18:19)
[2017-10-04] MEDS ORDERED: NOVOLOG SUB-Q SCH (07:30)
[2017-10-04] MEDS: NOVOLOG SUB-Q SCH ×6 (09:01→22:05)
[2017-10-04] MEDS: APRESOLINE PO SCH ×3 (09:02→22:00)
[2017-10-04] MEDS: LANOXIN PO SCH (09:02)
[2017-10-04] MEDS: CLARITIN PO SCH (09:03)
[2017-10-04] MEDS: ZAROXOLYN PO SCH (09:03)
[2017-10-04] MEDS: K-DUR PO SCH ×3 (09:03→22:00)
[2017-10-04] MEDS: COREG PO SCH ×2 (09:03→22:00)
[2017-10-04] MEDS: ATIVAN PO SCH ×2 (09:04→22:00)
[2017-10-04] MEDS: CORDARONE PO SCH (09:04)
[2017-10-04] MEDS: PULMICORT IH SCH ×2 (09:21→20:52)
--- NOTE | 2017-10-04 10:35 | Progress Note ---
Assessment and Plan - Patient Problems (1) Angina at rest Current Visit: Yes Status: Acute (2) Atrial fibrillation Current Visit: Yes Status: Acute Qualifiers: Atrial fibrillation type: chronic Qualified Code(s): I48.2 - Chronic atrial fibrillation (3) COPD (chronic obstructive pulmonary disease) Current Visit: Yes Status: Acute (4) Diabetes Current Visit: Yes Status: Acute (5) Cardiomyopathy Current Visit: No Status: Chronic (6) HTN (hypertension), benign Current Visit: No Status: Chronic (7) Morbid obesity with BMI of 50.0-59.9, adult Current Visit: No Status: Chronic (8) AILEEN on CPAP Current Visit: No Status: Chronic Subjective Date of service: 10/04/17 Interval history: SOB-IMPRVED,,,+COUGH/WHEEZ Objective Vital Signs Temp Pulse Pulse Resp Resp BP BP 10/04/17 09:30 74 18 10/04/17 09:19 71 19 10/04/17 09:03 90 118/85 10/04/17 09:02 90 118/85 10/04/17 07:57 62 10/04/17 05:39 97.6 F 63 18 123/76 10/04/17 05:00 73 10/04/17 04:07 58 L 123/76 10/03/17 22:00 20 10/03/17 20:33 72 72 20 20 10/03/17 20:18 68 20 10/03/17 20:17 98 F 55 L 18 145/83 10/03/17 19:29 67 145/83 10/03/17 16:50 54 L 20 126/68 10/03/17 12:09 97.9 F 20 148/85 Pulse Ox 10/04/17 09:30 10/04/17 09:19 10/04/17 09:03 10/04/17 09:02 10/04/17 07:57 95 10/04/17 05:39 96 10/04/17 05:00 10/04/17 04:07 94 10/03/17 22:00 10/03/17 20:33 96 10/03/17 20:18 10/03/17 20:17 92 10/03/17 19:29 92 10/03/17 16:50 95 10/03/17 12:09 - Physical Examination General: No Apparent Distress HEENT: Positive: PERRL Neck: Positive: neck supple Cardiac: Positive: Regular Rhythm Lungs: Positive: clear to auscultation Neuro: Positive: Grossly Intact Abdomen: Positive: Soft Extremities: Present: edema (MILD) - Labs and Meds Coagulation 10/04/17 Range/Units 05:08 PT 20.3 H (12.2-14.9) Sec. INR 1.63 H (0.87-1.13) CBC 10/04/17 Range/Units 05:08 WBC 6.6 (4.5-11.0) K/mm3 RBC 5.49 H (3.65-5.03) M/mm3 Hgb 15.5 H (11.8-15.2) gm/dl Hct 48.3 H (35.5-45.6) % Plt Count 159 (140-440) K/mm3 Lymph # 2.0 (1.2-5.4) K/mm3 [place] # 0.6 (0.0-0.8) K/mm3 Eos # 0.1 (0.0-0.4) K/mm3 Baso # 0.0 (0.0-0.1) K/mm3 Comprehensive Metabolic Panel 10/04/17 Range/Units 05:08 Sodium 140 (137-145) mmol/L Potassium 3.3 L (3.6-5.0) mmol/L Chloride 91.1 L (98-107) mmol/L Carbon Dioxide 30 (22-30) mmol/L BUN 24 H (9-20) mg/dL Creatinine 1.3 (0.8-1.5) mg/dL Glucose 291 H (75-100) mg/dL Calcium 9.1 (8.4-10.2) mg/dL
--- NOTE | 2017-10-04 10:37 | Progress Note ---
Assessment and Plan Assessment and plan: 52 YO Male with MO, HTN, Atrial Fib, COPD, Systolic CHF with EF of 30%, GERD, Seizure Disorder, Migraine Headache, COPD, AILEEN, DM with SOB, and chf exacerbation Systolic CHF, acute on chronic case dw with cardiology, continue IV lasix, optimize meds chest pain likely due to CHF, continue to rx as stated above COPD (chronic obstructive pulmonary disease) not in exacerbation, nebs prn Acute respiratory failure with hypoxia continue CPAP and oxygen as needed Type 2 IDDM, uncontrolled SSI, a1c 9.2, add basal and bolus insulin Morbid obesity with BMI of 50.0-59.9, adult Balanced diet, incrased physical activity as discharge, outpatient bariatric surgery Sleep apnea CPAP while asleep Atrial fibrillation with hypercoaguable state Rate currently controlled. Continue warfarin for anticoagulation, continue rate control Hypokalemia replete PO History Interval history: co sob, patino, and orthopnea, and LE edema no CP, no cough, no sputum no n/v/d Hospitalist Physical - Physical exam Narrative exam: General appearance: Present: mild distress, obese - EENT Eyes: Present: PERRL ENT: hearing intact - Neck Neck: Present: supple - Respiratory Respiratory effort: labored Respiratory: bilateral: rales - Cardiovascular Rhythm: irregularly irregular Heart Sounds: Present: S1 & S2 - Extremities Extremities: no ischemia Extremity abnormal: edema Peripheral Pulses: within normal limits - Abdominal General gastrointestinal: soft, non-tender - Integumentary Integumentary: Present: clear, warm - Psychiatric Psychiatric: appropriate mood/affect - Neurologic Neurologic: CNII-XII intact, moves all extremities - Constitutional Vitals: Temp Pulse Resp BP Pulse Ox 97.6 F 74 18 118/85 95 10/04/17 05:39 10/04/17 09:30 10/04/17 09:30 10/04/17 09:03 10/04/17 07:57 General appearance: Present: no acute distress, obese Results - Labs CBC & Chem 7: 10/04/17 05:08 10/04/17 05:08 Labs: Laboratory Last Values WBC 6.6 K/mm3 (4.5-11.0) 10/04/17 05:08 RBC 5.49 M/mm3 (3.65-5.03) H 10/04/17 05:08 Hgb 15.5 gm/dl (11.8-15.2) H 10/04/17 05:08 Hct 48.3 % (35.5-45.6) H 10/04/17 05:08 MCV 88 fl (84-94) 10/04/17 05:08 MCH 28 pg (28-32) 10/04/17 05:08 MCHC 32 % (32-34) 10/04/17 05:08 RDW 14.5 % (13.2-15.2) 10/04/17 05:08 Plt Count 159 K/mm3 (140-440) 10/04/17 05:08 Lymph % (Auto) 29.8 % (13.4-35.0) 10/04/17 05:08 [place] % (Auto) 9.0 % (0.0-7.3) H 10/04/17 05:08 Eos % (Auto) 1.1 % (0.0-4.3) 10/04/17 05:08 Baso % (Auto) 0.5 % (0.0-1.8) 10/04/17 05:08 Lymph # 2.0 K/mm3 (1.2-5.4) 10/04/17 05:08 [place] # 0.6 K/mm3 (0.0-0.8) 10/04/17 05:08 Eos # 0.1 K/mm3 (0.0-0.4) 10/04/17 05:08 Baso # 0.0 K/mm3 (0.0-0.1) 10/04/17 05:08 Seg Neutrophils % 59.6 % (40.0-70.0) 10/04/17 05:08 Seg Neutrophils # 3.9 K/mm3 (1.8-7.7) 10/04/17 05:08 PT 20.3 Sec. (12.2-14.9) H 10/04/17 05:08 INR 1.63 (0.87-1.13) H 10/04/17 05:08 APTT 38.4 Sec. (24.2-36.6) H 10/01/17 13:29 Sodium 140 mmol/L (137-145) 10/04/17 05:08 Potassium 3.3 mmol/L (3.6-5.0) L 10/04/17 05:08 Chloride 91.1 mmol/L (98-107) L 10/04/17 05:08 Carbon Dioxide 30 mmol/L (22-30) 10/04/17 05:08 Anion Gap 22 mmol/L 10/04/17 05:08 BUN 24 mg/dL (9-20) H 10/04/17 05:08 Creatinine 1.3 mg/dL (0.8-1.5) 10/04/17 05:08 Estimated GFR 58 ml/min 10/04/17 05:08 BUN/Creatinine Ratio 18 % 10/04/17 05:08 Glucose 291 mg/dL (75-100) H 10/04/17 05:08 POC Glucose 262 (70-105) H 10/04/17 08:05 Hemoglobin A1c 9.2 % (4-6) H 10/04/17 05:08 Calcium 9.1 mg/dL (8.4-10.2) 10/04/17 05:08 Total Bilirubin 0.80 mg/dL (0.1-1.2) 10/01/17 13:29 AST 14 units/L (5-40) 10/01/17 13:29 ALT 12 units/L (7-56) 10/01/17 13:29 Alkaline Phosphatase 58 units/L (35-129) 10/01/17 13:29 Troponin T < 0.010 ng/mL (0.00-0.029) 10/02/17 00:20 NT-Pro-B Natriuret Pep 1362 pg/mL (0-900) H 10/01/17 13:29 Total Protein 6.5 g/dL (6.3-8.2) 10/01/17 13:29 Albumin 3.3 g/dL (3.9-5) L 10/01/17 13:29 Albumin/Globulin Ratio 1.0 % 10/01/17 13:29 Digoxin 0.5 ng/mL (0.9-2.0) L 10/02/17 07:25
[2017-10-04] MEDS: XALATAN 0.005% OD SCH (18:19)
[2017-10-04] MEDS: COUMADIN PO SCH (18:20)
[2017-10-04] MEDS: PRAVACHOL PO SCH (22:00)
[2017-10-04] MEDS ORDERED: LEVEMIR SUB-Q SCH (22:00)
[2017-10-04] MEDS: LEVEMIR SUB-Q SCH (22:01)
[2017-10-05 05:20] LABS: INR 1.74 (0.87-1.13)
[2017-10-05] MEDS: LASIX IV SCH ×2 (06:18→17:43)
[2017-10-05] MEDS: PULMICORT IH SCH ×2 (07:28→20:31)
[2017-10-05] MEDS: ATIVAN PO SCH ×2 (09:11→22:21)
[2017-10-05] MEDS: CLARITIN PO SCH (09:11)
[2017-10-05] MEDS: LANOXIN PO SCH (09:11)
[2017-10-05] MEDS: APRESOLINE PO SCH ×3 (09:11→22:24)
[2017-10-05] MEDS: COREG PO SCH ×2 (09:11→22:22)
[2017-10-05] MEDS: CORDARONE PO SCH (09:11)
[2017-10-05] MEDS: ZAROXOLYN PO SCH (09:11)
[2017-10-05] MEDS: K-DUR PO SCH ×2 (09:11→22:21)
[2017-10-05] MEDS: NOVOLOG SUB-Q SCH ×7 (09:12→22:23)
--- NOTE | 2017-10-05 10:35 | Progress Note ---
Assessment and Plan Atypical chest pain Acute systolic heart failure Dilated Nonischemic cardiomyopathy LVEF 30-35% on echo 2014. C 2015- no significant CAD, LVEF 30%. Afib persists on coumadin for oral anticoagulation. INR 1.92 on presentation. COPD DM Hypertension AILEEN Plan: Continue medical therapy for systolic heart failure. We will get an echocardiogram for LVEF reassessment. Subjective Date of service: 10/05/17 Interval history: Patient reports his breathing has improved. Admits he is diuresing well. Noted 20lb weight loss since admission. Objective Vital Signs Temp Pulse Pulse Resp Resp BP BP 10/05/17 08:26 97.3 F L 20 134/78 10/05/17 07:35 65 18 10/05/17 07:29 64 18 10/05/17 05:00 51 L 10/05/17 04:45 97.5 F L 51 L 20 131/74 10/04/17 22:00 18 10/04/17 20:54 59 L 18 10/04/17 20:53 59 L 18 10/04/17 20:24 98.0 F 75 18 147/81 10/04/17 18:18 97.6 F 54 L 18 160/84 10/04/17 17:02 63 Pulse Ox 10/05/17 08:26 10/05/17 07:35 10/05/17 07:29 10/05/17 05:00 10/05/17 04:45 95 10/04/17 22:00 10/04/17 20:54 98 10/04/17 20:53 10/04/17 20:24 93 10/04/17 18:18 97 10/04/17 17:02 97 - Physical Examination General: No Apparent Distress, Other (obese) HEENT: Positive: PERRL Cardiac: Positive: irregularly irregular Lungs: Positive: Decreased Breath Sounds Neuro: Positive: Grossly Intact Extremities: Absent: edema - Labs and Meds Coagulation 10/05/17 Range/Units 04:50 PT 21.4 H (12.2-14.9) Sec. INR 1.74 H (0.87-1.13)
--- NOTE | 2017-10-05 15:34 | Progress Note ---
Assessment and Plan Assessment and plan: 52 YO Male with MO, HTN, Atrial Fib, COPD, Systolic CHF with EF of 30%, GERD, Seizure Disorder, Migraine Headache, COPD, AILEEN, DM with SOB, and chf exacerbation Systolic CHF, acute on chronic case dw with cardiology, continue IV lasix, optimize meds chest pain likely due to CHF, continue to rx as stated above case dw cardiology COPD (chronic obstructive pulmonary disease) not in exacerbation, nebs prn Acute respiratory failure with hypoxia continue CPAP and oxygen as needed Type 2 IDDM, uncontrolled SSI, a1c 9.2, add basal and bolus insulin Morbid obesity with BMI of 50.0-59.9, adult Balanced diet, incrased physical activity as discharge, outpatient bariatric surgery Sleep apnea CPAP while asleep Atrial fibrillation with hypercoaguable state Rate currently controlled. Continue warfarin for anticoagulation, continue rate control Hypokalemia replete PO History Interval history: admits marked improvement in sob, patino, and orthopnea, and LE edema no CP, no cough, no sputum no n/v/d Hospitalist Physical - Physical exam Narrative exam: General appearance: Present: mild distress, obese - EENT Eyes: Present: PERRL ENT: hearing intact - Neck Neck: Present: supple - Respiratory Respiratory effort: normal Respiratory: rales are improved - Cardiovascular Rhythm: irregularly irregular Heart Sounds: Present: S1 & S2 - Extremities Extremities: no ischemia Extremity abnormal: edema is resolved in LE Peripheral Pulses: within normal limits - Abdominal General gastrointestinal: soft, non-tender - Integumentary Integumentary: Present: clear, warm - Psychiatric Psychiatric: appropriate mood/affect - Neurologic Neurologic: CNII-XII intact, moves all extremities - Constitutional Vitals: Temp Pulse Resp BP Pulse Ox 97.3 F L 65 20 134/78 95 10/05/17 08:26 10/05/17 07:35 10/05/17 08:26 10/05/17 08:26 10/05/17 04:45 General appearance: Present: no acute distress, obese Results - Labs CBC & Chem 7: 10/04/17 05:08 10/04/17 05:08 Labs: Laboratory Last Values WBC 6.6 K/mm3 (4.5-11.0) 10/04/17 05:08 RBC 5.49 M/mm3 (3.65-5.03) H 10/04/17 05:08 Hgb 15.5 gm/dl (11.8-15.2) H 10/04/17 05:08 Hct 48.3 % (35.5-45.6) H 10/04/17 05:08 MCV 88 fl (84-94) 10/04/17 05:08 MCH 28 pg (28-32) 10/04/17 05:08 MCHC 32 % (32-34) 10/04/17 05:08 RDW 14.5 % (13.2-15.2) 10/04/17 05:08 Plt Count 159 K/mm3 (140-440) 10/04/17 05:08 Lymph % (Auto) 29.8 % (13.4-35.0) 10/04/17 05:08 [place] % (Auto) 9.0 % (0.0-7.3) H 10/04/17 05:08 Eos % (Auto) 1.1 % (0.0-4.3) 10/04/17 05:08 Baso % (Auto) 0.5 % (0.0-1.8) 10/04/17 05:08 Lymph # 2.0 K/mm3 (1.2-5.4) 10/04/17 05:08 [place] # 0.6 K/mm3 (0.0-0.8) 10/04/17 05:08 Eos # 0.1 K/mm3 (0.0-0.4) 10/04/17 05:08 Baso # 0.0 K/mm3 (0.0-0.1) 10/04/17 05:08 Seg Neutrophils % 59.6 % (40.0-70.0) 10/04/17 05:08 Seg Neutrophils # 3.9 K/mm3 (1.8-7.7) 10/04/17 05:08 PT 21.4 Sec. (12.2-14.9) H 10/05/17 04:50 INR 1.74 (0.87-1.13) H 10/05/17 04:50 APTT 38.4 Sec. (24.2-36.6) H 10/01/17 13:29 Sodium 140 mmol/L (137-145) 10/04/17 05:08 Potassium 3.3 mmol/L (3.6-5.0) L 10/04/17 05:08 Chloride 91.1 mmol/L (98-107) L 10/04/17 05:08 Carbon Dioxide 30 mmol/L (22-30) 10/04/17 05:08 Anion Gap 22 mmol/L 10/04/17 05:08 BUN 24 mg/dL (9-20) H 10/04/17 05:08 Creatinine 1.3 mg/dL (0.8-1.5) 10/04/17 05:08 Estimated GFR 58 ml/min 10/04/17 05:08 BUN/Creatinine Ratio 18 % 10/04/17 05:08 Glucose 291 mg/dL (75-100) H 10/04/17 05:08 POC Glucose 248 (70-105) H 10/04/17 21:57 Hemoglobin A1c 9.2 % (4-6) H 10/04/17 05:08 Calcium 9.1 mg/dL (8.4-10.2) 10/04/17 05:08 Total Bilirubin 0.80 mg/dL (0.1-1.2) 10/01/17 13:29 AST 14 units/L (5-40) 10/01/17 13:29 ALT 12 units/L (7-56) 10/01/17 13:29 Alkaline Phosphatase 58 units/L (35-129) 10/01/17 13:29 Troponin T < 0.010 ng/mL (0.00-0.029) 10/02/17 00:20 NT-Pro-B Natriuret Pep 1362 pg/mL (0-900) H 10/01/17 13:29 Total Protein 6.5 g/dL (6.3-8.2) 10/01/17 13:29 Albumin 3.3 g/dL (3.9-5) L 10/01/17 13:29 Albumin/Globulin Ratio 1.0 % 10/01/17 13:29 Digoxin 0.5 ng/mL (0.9-2.0) L 10/02/17 07:25
[2017-10-05] MEDS: COUMADIN PO SCH (17:44)
[2017-10-05] MEDS: XALATAN 0.005% OD SCH (17:44)
[2017-10-05] MEDS: PRAVACHOL PO SCH (22:21)
[2017-10-05] MEDS: LEVEMIR SUB-Q SCH (22:28)
[2017-10-06 07:31] LABS: INR 1.83 (0.87-1.13)
[2017-10-06] MEDS: NOVOLOG SUB-Q SCH ×7 (07:42→22:44)
[2017-10-06] MEDS: APRESOLINE PO SCH ×3 (07:43→22:37)
[2017-10-06] MEDS: LASIX IV SCH ×2 (07:59→17:32)
[2017-10-06] MEDS: PULMICORT IH SCH ×2 (08:54→20:14)
[2017-10-06] MEDS: LANOXIN PO SCH (10:38)
[2017-10-06] MEDS: ATIVAN PO SCH ×2 (10:39→22:35)
[2017-10-06] MEDS: CLARITIN PO SCH (10:39)
[2017-10-06] MEDS: CORDARONE PO SCH (10:39)
[2017-10-06] MEDS: COREG PO SCH ×2 (10:39→22:37)
[2017-10-06] MEDS: ZAROXOLYN PO SCH (10:39)
[2017-10-06] MEDS: K-DUR PO SCH ×2 (10:39→22:35)
--- NOTE | 2017-10-06 11:50 | Progress Note ---
Assessment and Plan Atypical chest pain Acute systolic heart failure Dilated Nonischemic cardiomyopathy LVEF 30-35% on echo 2014. LHC 2015- no significant CAD, LVEF 30%. Afib persists on coumadin for oral anticoagulation. INR 1.92 on presentation. COPD DM Hypertension AILEEN Echocardiogram done today, results are pending. Recommendations: Continue medical therapy for systolic heart failure and persistent atrial fibrillation. Subjective Date of service: 10/06/17 Interval history: Patient continues to improve. Objective Vital Signs Temp Pulse Pulse Resp Resp BP BP 10/06/17 08:08 97.5 F L 74 20 140/100 10/06/17 07:38 74 10/06/17 04:06 56 L 10/05/17 23:01 44 L 22 10/05/17 20:20 44 L 20 10/05/17 19:50 98.9 F 74 18 119/55 10/05/17 19:38 48 L 119/55 10/05/17 19:30 55 L 20 10/05/17 15:22 97.3 F L 74 20 144/89 10/05/17 13:00 74 Pulse Ox 10/06/17 08:08 96 10/06/17 07:38 10/06/17 04:06 98 10/05/17 23:01 95 10/05/17 20:20 10/05/17 19:50 96 10/05/17 19:38 96 10/05/17 19:30 10/05/17 15:22 97 10/05/17 13:00 - Physical Examination General: No Apparent Distress, Other (obese) HEENT: Positive: PERRL Cardiac: Positive: irregularly irregular Lungs: Positive: Decreased Breath Sounds Neuro: Positive: Grossly Intact - Labs and Meds Coagulation 10/06/17 Range/Units 04:00 PT 22.3 H (12.2-14.9) Sec. INR 1.83 H (0.87-1.13)
--- NOTE | 2017-10-06 16:35 | Progress Note ---
Assessment and Plan Assessment and plan: 52 YO Male with MO, HTN, Atrial Fib, COPD, Systolic CHF with EF of 30%, GERD, Seizure Disorder, Migraine Headache, COPD, AILEEN, DM with SOB, and chf exacerbation Systolic CHF, acute on chronic Per cardiology, continue IV lasix, optimize meds chest pain likely due to CHF, continue to rx as stated above COPD (chronic obstructive pulmonary disease) not in exacerbation, nebs prn Acute respiratory failure with hypoxia continue CPAP and oxygen as needed Type 2 IDDM, uncontrolled SSI, a1c 9.2, add basal and bolus insulin Morbid obesity with BMI of 50.0-59.9, adult Balanced diet, incrased physical activity as discharge, outpatient bariatric surgery Sleep apnea CPAP while asleep Atrial fibrillation with hypercoaguable state Rate currently controlled. Continue warfarin for anticoagulation, continue rate control Hypokalemia replete PO History Interval history: Patient was seen and evaluated this morning, patient said that he is feeling a little bit better. Hospitalist Physical - Physical exam Narrative exam: Not in cardiopulmonary distress. The patient is morbidly obese. Vital signs as documented. Head exam is unremarkable. No scleral icterus . Neck is without jugular venous distension, thyromegaly, or carotid bruits. Lungs are clear to auscultation. Cardiac exam reveals regular rate and Rhythm. First and second heart sounds normal. No murmurs, rubs or gallops. Abdominal exam reveals normal bowel sounds, no masses, no organomegaly and no aortic enlargement. Extremities are nonedematous and both femoral and pedal pulses are normal. 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 No focal weakness. - Constitutional Vitals: Temp Pulse Resp BP Pulse Ox 97.4 F L 74 20 155/92 96 10/06/17 11:43 10/06/17 08:08 10/06/17 11:43 10/06/17 11:43 10/06/17 08:08 General appearance: Present: no acute distress, obese Results - Labs CBC & Chem 7: 10/04/17 05:08 10/04/17 05:08 Labs: Laboratory Last Values WBC 6.6 K/mm3 (4.5-11.0) 10/04/17 05:08 RBC 5.49 M/mm3 (3.65-5.03) H 10/04/17 05:08 Hgb 15.5 gm/dl (11.8-15.2) H 10/04/17 05:08 Hct 48.3 % (35.5-45.6) H 10/04/17 05:08 MCV 88 fl (84-94) 10/04/17 05:08 MCH 28 pg (28-32) 10/04/17 05:08 MCHC 32 % (32-34) 10/04/17 05:08 RDW 14.5 % (13.2-15.2) 10/04/17 05:08 Plt Count 159 K/mm3 (140-440) 10/04/17 05:08 Lymph % (Auto) 29.8 % (13.4-35.0) 10/04/17 05:08 [place] % (Auto) 9.0 % (0.0-7.3) H 10/04/17 05:08 Eos % (Auto) 1.1 % (0.0-4.3) 10/04/17 05:08 Baso % (Auto) 0.5 % (0.0-1.8) 10/04/17 05:08 Lymph # 2.0 K/mm3 (1.2-5.4) 10/04/17 05:08 [place] # 0.6 K/mm3 (0.0-0.8) 10/04/17 05:08 Eos # 0.1 K/mm3 (0.0-0.4) 10/04/17 05:08 Baso # 0.0 K/mm3 (0.0-0.1) 10/04/17 05:08 Seg Neutrophils % 59.6 % (40.0-70.0) 10/04/17 05:08 Seg Neutrophils # 3.9 K/mm3 (1.8-7.7) 10/04/17 05:08 PT 22.3 Sec. (12.2-14.9) H 10/06/17 04:00 INR 1.83 (0.87-1.13) H 10/06/17 04:00 APTT 38.4 Sec. (24.2-36.6) H 10/01/17 13:29 Sodium 140 mmol/L (137-145) 10/04/17 05:08 Potassium 3.3 mmol/L (3.6-5.0) L 10/04/17 05:08 Chloride 91.1 mmol/L (98-107) L 10/04/17 05:08 Carbon Dioxide 30 mmol/L (22-30) 10/04/17 05:08 Anion Gap 22 mmol/L 10/04/17 05:08 BUN 24 mg/dL (9-20) H 10/04/17 05:08 Creatinine 1.3 mg/dL (0.8-1.5) 10/04/17 05:08 Estimated GFR 58 ml/min 10/04/17 05:08 BUN/Creatinine Ratio 18 % 10/04/17 05:08 Glucose 291 mg/dL (75-100) H 10/04/17 05:08 POC Glucose 243 (70-105) H 10/05/17 20:55 Hemoglobin A1c 9.2 % (4-6) H 10/04/17 05:08 Calcium 9.1 mg/dL (8.4-10.2) 10/04/17 05:08 Total Bilirubin 0.80 mg/dL (0.1-1.2) 10/01/17 13:29 AST 14 units/L (5-40) 10/01/17 13:29 ALT 12 units/L (7-56) 10/01/17 13:29 Alkaline Phosphatase 58 units/L (35-129) 10/01/17 13:29 Troponin T < 0.010 ng/mL (0.00-0.029) 10/02/17 00:20 NT-Pro-B Natriuret Pep 1362 pg/mL (0-900) H 10/01/17 13:29 Total Protein 6.5 g/dL (6.3-8.2) 10/01/17 13:29 Albumin 3.3 g/dL (3.9-5) L 10/01/17 13:29 Albumin/Globulin Ratio 1.0 % 10/01/17 13:29 Digoxin 0.5 ng/mL (0.9-2.0) L 10/02/17 07:25
[2017-10-06] MEDS: COUMADIN PO SCH (17:32)
[2017-10-06] MEDS: LEVEMIR SUB-Q SCH (22:35)
[2017-10-06] MEDS: PRAVACHOL PO SCH (22:35)
[2017-10-07 06:44] LABS: Basophils % (Auto) 0.4 % (0.0-1.8); Eosinophils # (Auto) 0.1 K/mm3 (0.0-0.4); Eosinophils % (Auto) 0.8 % (0.0-4.3); Hematocrit 49.4 % (35.5-45.6); Hemoglobin 16.1 gm/dl (11.8-15.2); Lymphocytes # (Auto) 2.2 K/mm3 (1.2-5.4); Lymphocytes % (Auto) 30.3 % (13.4-35.0); Mean Corpuscular HGB Conc 33 % (32-34); Mean Corpuscular Hemoglobin 29 pg (28-32); Mean Corpuscular Volume 87 fl (84-94); Monocytes # (Auto) 0.7 K/mm3 (0.0-0.8); Monocytes % (Auto) 9.6 % (0.0-7.3); Platelet Count 153 K/mm3 (140-440); Red Blood Count 5.65 M/mm3 (3.65-5.03); Red Cell Distribution Width 13.8 % (13.2-15.2)
[2017-10-07] MEDS: LASIX IV SCH (06:51)
[2017-10-07 06:58] LABS: INR 1.83 (0.87-1.13)
[2017-10-07 07:04] LABS: Calcium 9.4 mg/dL (8.4-10.2)
[2017-10-07] MEDS ORDERED: LEVEMIR SUB-Q SCH (10:00)
--- NOTE | 2017-10-07 10:02 | Progress Note ---
Assessment and Plan Atypical chest pain Acute systolic heart failure Dilated Nonischemic cardiomyopathy Echocardiogram shows a moderate severity cardiomyopathy, ejection fraction 35 -40%. [facility] 2015- no significant CAD, LVEF 30%. Afib persists on coumadin for oral anticoagulation. INR 1.92 on presentation. COPD DM Hypertension AILEEN Echocardiogram done today, results are pending. Recommendations: Continue medical therapy for systolic heart failure. Continue rate control and Coumadin therapy for atrial fibrillation. Stable, cardiac monahan, for discharge home today. F/U with Dr Patel as scheduled October 15. Subjective Date of service: 10/07/17 Interval history: Patient reports he is feeling better. Objective Vital Signs Temp Pulse Pulse Pulse Resp Resp Resp 10/07/17 04:46 97.6 F 58 L 20 10/07/17 02:12 65 20 10/06/17 22:37 61 10/06/17 22:00 20 10/06/17 20:12 82 16 10/06/17 20:02 97.5 F L 61 20 10/06/17 19:21 76 10/06/17 16:15 72 10/06/17 16:10 97.6 F 64 20 10/06/17 11:43 97.4 F L 20 BP Pulse Ox 10/07/17 04:46 155/90 95 10/07/17 02:12 10/06/17 22:37 158/89 10/06/17 22:00 10/06/17 20:12 10/06/17 20:02 158/89 93 10/06/17 19:21 10/06/17 16:15 94 10/06/17 16:10 141/89 94 10/06/17 11:43 155/92 - Physical Examination General: No Apparent Distress, Other (obese) HEENT: Positive: PERRL Cardiac: Positive: irregularly irregular Neuro: Positive: Grossly Intact Extremities: Absent: edema - Labs and Meds Coagulation 10/07/17 Range/Units 05:59 PT 22.3 H (12.2-14.9) Sec. INR 1.83 H (0.87-1.13) CBC 10/07/17 Range/Units 05:59 WBC 7.2 (4.5-11.0) K/mm3 RBC 5.65 H (3.65-5.03) M/mm3 Hgb 16.1 H (11.8-15.2) gm/dl Hct 49.4 H (35.5-45.6) % Plt Count 153 (140-440) K/mm3 Lymph # 2.2 (1.2-5.4) K/mm3 [place] # 0.7 (0.0-0.8) K/mm3 Eos # 0.1 (0.0-0.4) K/mm3 Baso # 0.0 (0.0-0.1) K/mm3 Comprehensive Metabolic Panel 10/07/17 Range/Units 05:59 Sodium 138 (137-145) mmol/L Potassium 3.5 L (3.6-5.0) mmol/L Chloride 88.6 L (98-107) mmol/L Carbon Dioxide 34 H (22-30) mmol/L BUN 39 H (9-20) mg/dL Creatinine 1.7 H (0.8-1.5) mg/dL Glucose 358 H (75-100) mg/dL Calcium 9.4 (8.4-10.2) mg/dL
[2017-10-07] MEDS: PULMICORT IH SCH (10:20)
--- NOTE | 2017-10-07 11:08 | Discharge Summary ---
Providers - Providers Date of Admission: 10/01/17 18:28 Date of discharge: 10/07/17 Attending physician: ALEXANDRA PEOPLES MD 10/01/17 Consult to Cardiac Rehabilitation [CONS] Routine Reason For Exam: Phase I 10/03/17 12:58 Physical Therapy Evaluation and Treat [CONS] Routine Comment: Reason For Exam: debility Primary care physician: ENAMEL DIPPER Hospitalization Reason for admission: CHF exacerbation Condition: Stable Pertinent studies: Echo: EF 35-40% Hospital course: History of present illness: 52 YO Male with MO, HTN, Atrial Fib, COPD, Systolic CHF with EF of 30%, GERD, Seizure Disorder, Migraine Headache, COPD, AILEEN, DM presents to ED for evaluation. Pt states that he has experienced pain in his chest for the past 1 day with worsening symptoms over the past 6 hours. Pt states that his chest pain is 7/10, Substernal, Radiates to his left arm and neck, associated with shortness of breath, worsens with exertion, no improved with rest. Systolic CHF, acute on chronic: was treated with IV lasix and metolazone. Patient creatinine was elevated, lasix and metolazone was discontinued and discharge with Bumex per cardiology recommendations. COPD (chronic obstructive pulmonary disease) not in exacerbation and continue home medications. AILEEN, continue CPAP. Type 2 IDDM, continue home dose of insulin. Morbid obesity with BMI of 66.0 counselled about weight loss, diet and exercise , bariatric evaluation as an O/P. Atrial fibrillation continue warfarin. Patient was scheduled to see cardiology in 1 week. Patient was hemodynamically stable at the time of discharge. Disposition: DC- TO HOME OR SELFCARE Time spent for discharge: 31 minutes - Discharge Diagnoses (1) Atrial fibrillation Status: Chronic Qualifiers: Atrial fibrillation type: chronic Qualified Code(s): I48.2 - Chronic atrial fibrillation (2) COPD (chronic obstructive pulmonary disease) Status: Chronic (3) Systolic CHF, acute Status: Acute (4) Hyperglycemia Status: Acute (5) HTN (hypertension), benign Status: Chronic (6) Morbid obesity with BMI of 50.0-59.9, adult Status: Chronic (7) AILEEN on CPAP Status: Chronic (8) Obesities, morbid Status: Chronic (9) Sleep apnea Status: Chronic Core Measure Documentation - Palliative Care Palliative Care/ Comfort Measures: Not Applicable - Core Measures Any of the following diagnoses?: history only (CHF) Exam - Physical Exam Narrative exam: Not in cardiopulmonary distress. The patient is morbidly obese. Vital signs as documented. Head exam is unremarkable. No scleral icterus . Neck is without jugular venous distension, thyromegaly, or carotid bruits. Lungs are clear to auscultation. Cardiac exam reveals regular rate and Rhythm. First and second heart sounds normal. No murmurs, rubs or gallops. Abdominal exam reveals normal bowel sounds, no masses, no organomegaly and no aortic enlargement. Extremities are nonedematous and both femoral and pedal pulses are normal. 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 No focal weakness. - Constitutional Vitals: Temp Pulse Resp BP Pulse Ox 97.6 F 58 L 20 155/90 95 10/07/17 04:46 10/07/17 04:46 10/07/17 04:46 10/07/17 04:46 10/07/17 04:46 Plan Activity: no restrictions Weight Bearing Status: Full Weight Bearing Diet: low fat, low cholesterol, low salt, low carbohydrate Follow up with: PRIMARY CARE, [Primary Care Provider] - 3-5 Days Forms: Warfarin Discharge Instruction Prescriptions: Bumetanide [Bumex 1 mg tab] 1 mg PO 0600,1800 #60 tablet
[2017-10-07] MEDS: LANOXIN PO SCH (11:24)
[2017-10-07] MEDS: K-DUR PO SCH (11:25)
[2017-10-07] MEDS: COREG PO SCH (11:25)
[2017-10-07] MEDS: CLARITIN PO SCH (11:26)
[2017-10-07] MEDS: CORDARONE PO SCH (11:26)
[2017-10-07] MEDS: ATIVAN PO SCH (11:27)
[2017-10-07] MEDS: APRESOLINE PO SCH ×2 (11:50→15:39)
[2017-10-07] MEDS: NOVOLOG SUB-Q SCH ×4 (11:52→12:29)
[2017-10-07 13:33] VITALS: BP 148/92
[2017-10-07] MEDS ORDERED: BUMEX PO SCH (18:00)
== END 2017-10-07 17:20 | disposition home or self-care (01) | DRG 291 ==
LOC: ED 12:04 → 4A 18:28
PROVIDERS: ADMIT Internal Medicine; ATTEND Internal Medicine
PROC: 5A09457 Assistance with Respiratory Ventilation, 24-96 Consecutive Hours, Continuous Positive Airway Pressure (ICD-10-PCS; principal; 2017-10-02)
DX: I11.0 Hypertensive heart disease with heart failure (principal); J96.01 Acute respiratory failure with hypoxia; D68.59 Other primary thrombophilia; Z68.44 Body mass index [BMI] 60.0-69.9, adult; I25.9 Chronic ischemic heart disease, unspecified; I50.23 Acute on chronic systolic (congestive) heart failure; J44.9 Chronic obstructive pulmonary disease, unspecified; K21.9 Gastro-esophageal reflux disease without esophagitis; G40.909 Epilepsy, unspecified, not intractable, without status epilepticus; G43.909 Migraine, unspecified, not intractable, without status migrainosus; G47.33 Obstructive sleep apnea (adult) (pediatric); E66.01 Morbid (severe) obesity due to excess calories; I20.9 Angina pectoris, unspecified; R07.89 Other chest pain; I42.0 Dilated cardiomyopathy; I48.0 Paroxysmal atrial fibrillation; E87.6 Hypokalemia; E11.65 Type 2 diabetes mellitus with hyperglycemia; Z79.4 Long term (current) use of insulin; Z88.5 Allergy status to narcotic agent; Z79.899 Other long term (current) drug therapy; Z87.442 Personal history of urinary calculi; Z87.891 Personal history of nicotine dependence; Z83.3 Family history of diabetes mellitus; Z82.49 Family history of ischemic heart disease and other diseases of the circulatory system; Z79.01 Long term (current) use of anticoagulants
CPT/HCPCS: 36415; 71046; 80048; 80053; 80162; 82962; 83036; 83880; 84484; 85025; 85610; 85730; 93005; 93010; 93306; 94640; 94660; A9270-GY; G8978-GP; G8979-GP; G8980-GP; J1815; J1818; J1940

== ENCOUNTER 2017-12-24 17:56 | Emergency (ER) | payer MEDICARE ==
[2017-12-24] MEDS ORDERED: ASPIRIN PO ONE (18:13)
[2017-12-24 18:58] LABS: Basophils % (Auto) 0.6 % (0.0-1.8); Eosinophils # (Auto) 0.1 K/mm3 (0.0-0.4); Hematocrit 46.1 % (35.5-45.6); Hemoglobin 15.7 gm/dl (11.8-15.2); Lymphocytes # (Auto) 2.1 K/mm3 (1.2-5.4); Lymphocytes % (Auto) 31.6 % (13.4-35.0); Mean Corpuscular HGB Conc 34 % (32-34); Mean Corpuscular Hemoglobin 30 pg (28-32); Mean Corpuscular Volume 88 fl (84-94); Monocytes # (Auto) 0.5 K/mm3 (0.0-0.8); Monocytes % (Auto) 7.6 % (0.0-7.3); Platelet Count 135 K/mm3 (140-440); Red Blood Count 5.22 M/mm3 (3.65-5.03); Red Cell Distribution Width 15.1 % (13.2-15.2)
[2017-12-24 19:11] LABS: BUN/Creatinine Ratio 8; Blood Urea Nitrogen 10 mg/dL (9-20); Calcium 8.2 mg/dL (8.4-10.2); Hemolysis Index 9
[2017-12-24 19:27] LABS: INR 2.83 (0.87-1.13)
[2017-12-24 19:28] LABS: Partial Thromboplastin Time 41.6 Sec. (24.2-36.6)
--- NOTE | 2017-12-24 19:58 | Emergency Department Report ---
ED Chest Pain HPI - General Chief Complaint: Chest Pain Stated Complaint: CHEST PAIN Time Seen by Provider: 12/24/17 19:39 Source: patient Mode of arrival: Ambulatory Limitations: No Limitations - History of Present Illness Initial Comments: Mr. Mcintyre is a pleasant 52-year-old male with history of atrial fibrillation, sleep apnea, hypertension, CHF and severe obesity. Just prior to arrival he had sharp intermittent episodic pain. Pain began while sitting on toilet. It would last 1-2 seconds. His placed her hand on his chest, she thought the patient had irregular heartbeat due to atrial fibrillation. She felt extra beat and then a pause. He has a history of atrial fibrillation. No history of DVT or PE. He is currently taking warfarin. According to his report last cardiac cath 2 years ago normal coronary anatomy. He does have chest pain related to atrial fibrillation which is paroxysmal. MD Complaint: chest pain -: Sudden, hour(s) (1) Onset: during rest, other (while sitting on the toilet) Pain Location: substernal Pain Radiation: none Severity scale (0 -10): 7 Quality: sharp Consistency: intermittent Improves With: nothing Worsens With: nothing Other Symptoms: other (leg pain left leg beginning posterior knee radiating to the foot) - Related Data Home Medications Medication Instructions Recorded Confirmed Last Taken Amiodarone [Cordarone 200 MG TAB] 200 mg PO DAILY 07/03/16 10/01/17 09/30/17 Carvedilol [Coreg] 6.25 mg PO BID 07/03/16 10/01/17 10/01/17 Digoxin 250 mcg PO QPM 07/03/16 10/01/17 09/30/17 Fluticasone Propionate [Flovent 1 puff IH BID PRN 07/03/16 10/01/17 10/01/17 Diskus] LORazepam [Ativan] 1 mg PO BID 07/03/16 10/01/17 10/01/17 Pravastatin Sodium [Pravastatin] 40 mg PO QPM 07/03/16 10/01/17 09/30/17 Warfarin [Coumadin] 7.5 mg PO DAILY 07/03/16 10/01/17 09/30/17 hydrALAZINE [Apresoline TAB] 100 mg PO TID 07/03/16 10/01/17 10/01/17 Sacubitril/Valsartan [Entresto 97 1 each PO BID 11/12/16 10/01/17 10/01/17 mg-103 mg Tablet] Insulin Aspart Protam & Aspart 60 unit SQ TID 10/01/17 10/01/17 10/01/17 [NovoLOG Mix 70-30 Flexpen] Previous Rx's Medication Instructions Recorded Last Taken Type Bumetanide [Bumex 1 mg tab] 1 mg PO 0600,1800 #60 tablet 10/07/17 Unknown Rx Allergies Allergy/AdvReac Type Severity Reaction Status Date / Time oxycodone Allergy Itching Verified 03/24/15 11:24 codeine AdvReac Itching Verified 03/24/15 11:24 Heart Score - HEART Score History: Slightly suspicious EKG: Normal Age: 45-65 Risk factors: > 3 risk factors or hx of atherosclerotic disease Troponin: < normal limit HEART Score: 3 ED Review of Systems ROS: Stated complaint: CHEST PAIN Other details as noted in HPI Comment: All other systems reviewed and negative Constitutional: denies: fever, malaise Respiratory: denies: cough Cardiovascular: chest pain, palpitations ED Past Medical Hx - Past Medical History Previous Medical History?: Yes Hx Hypertension: Yes Hx Heart Attack/AMI: No (CHF) Hx Congestive Heart Failure: Yes Hx Diabetes: Yes (5 YRS) Hx GERD: Yes Hx Headaches / Migraines: Yes (MIGRAINES) Hx Seizures: Yes (" MINOR ,LITTLE '') Hx Kidney Stones: Yes Hx Asthma: No Hx COPD: Yes Hx HIV: No Additional medical history: PAT. Chronic bilateral lower leg edema. Sleep apnea with C Pap. OBESITY - Surgical History Past Surgical History?: Yes Hx Pacemaker: No Additional Surgical History: kidney stone removal - Social History Smoking Status: Former Smoker Substance Use Type: Alcohol, Prescribed - Medications Home Medications: Home Medications Medication Instructions Recorded Confirmed Last Taken Type Amiodarone [Cordarone 200 MG TAB] 200 mg PO DAILY 07/03/16 10/01/17 09/30/17 History Carvedilol [Coreg] 6.25 mg PO BID 07/03/16 10/01/17 10/01/17 History Digoxin 250 mcg PO QPM 07/03/16 10/01/17 09/30/17 History Fluticasone Propionate [Flovent 1 puff IH BID PRN 1110/01/17 10/01/17 History Diskus] LORazepam [Ativan] 1 mg PO BID 07/03/16 10/01/17 10/01/17 History Pravastatin Sodium [Pravastatin] 40 mg PO QPM 07/03/16 10/01/17 09/30/17 History Warfarin [Coumadin] 7.5 mg PO DAILY 07/03/16 10/01/17 09/30/17 History hydrALAZINE [Apresoline TAB] 100 mg PO TID 07/03/16 10/01/17 10/01/17 History Sacubitril/Valsartan [Entresto 97 1 each PO BID 11/12/16 10/01/17 10/01/17 History mg-103 mg Tablet] Insulin Aspart Protam & Aspart 60 unit SQ TID 10/01/17 10/01/17 10/01/17 History [NovoLOG Mix 70-30 Flexpen] Bumetanide [Bumex 1 mg tab] 1 mg PO 0600,1800 #60 tablet 10/07/17 Unknown Rx ED Physical Exam - General Limitations: No Limitations General appearance: alert, in no apparent distress - Head Head exam: Present: atraumatic, normocephalic - Eye Eye exam: Present: normal appearance - ENT ENT exam: Present: mucous membranes moist - Neck Neck exam: Present: normal inspection - Respiratory Respiratory exam: Present: normal lung sounds bilaterally. Absent: respiratory distress, wheezes, rales, rhonchi - Cardiovascular Cardiovascular Exam: Present: regular rate, irregular rhythm, normal heart sounds. Absent: systolic murmur, diastolic murmur, rubs, gallop - GI/Abdominal GI/Abdominal exam: Present: soft, normal bowel sounds. Absent: distended, tenderness, guarding, rebound - Rectal Rectal exam: Present: deferred - Extremities Exam Extremities exam: Present: normal inspection - Back Exam Back exam: Present: normal inspection - Neurological Exam Neurological exam: Present: alert, oriented X3 - Psychiatric Psychiatric exam: Present: normal affect, normal mood - Skin Skin exam: Present: warm, dry, intact, normal color. Absent: rash - Other Other exam information: Both legs are similar in size, venous stasis changes in the lower extremities ED Course Vital Signs 12/24/17 12/24/17 12/24/17 18:10 19:20 20:00 Temperature 97.4 F L 98.6 F 97.8 F Pulse Rate 76 71 66 Respiratory 18 18 16 Rate Blood Pressure 172/92 148/84 Blood Pressure 148/84 [Left] O2 Sat by Pulse 94 98 98 Oximetry 12/24/17 21:00 Temperature Pulse Rate 73 Respiratory 16 Rate Blood Pressure 158/110 Blood Pressure [Left] O2 Sat by Pulse 98 Oximetry MO score - Mo Score Age > 65: (0) No 3 or more CAD Risk Factors: (1) Yes 2 or more Angina events in past 24 hrs: (0) No Known CAD with more than 50% Stenosis: (1) Yes Elevated Cardiac Markers: (0) No ST Deviation Greater than 0.5mm: (0) No ED Medical Decision Making - Lab Data Result diagrams: 12/24/17 18:42 12/24/17 18:42 Laboratory Results - last 24 hr 12/24/17 12/24/17 12/24/17 18:42 18:42 18:42 WBC 6.6 RBC 5.22 H Hgb 15.7 H Hct 46.1 H MCV 88 MCH 30 MCHC 34 RDW 15.1 Plt Count 135 L Lymph % (Auto) 31.6 [place] % (Auto) 7.6 H Eos % (Auto) 1.0 Baso % (Auto) 0.6 Lymph # 2.1 [place] # 0.5 Eos # 0.1 Baso # 0.0 Seg Neutrophils % 59.2 Seg Neutrophils # 3.9 PT 31.7 H INR 2.83 H APTT 41.6 H Sodium 140 Potassium 3.3 L Chloride 95.8 L Carbon Dioxide 32 H Anion Gap 16 BUN 10 Creatinine 1.2 Estimated GFR > 60 BUN/Creatinine Ratio 8 Glucose 277 H Calcium 8.2 L Troponin T < 0.010 Digoxin 12/24/17 12/24/17 20:25 20:25 WBC RBC Hgb Hct MCV MCH MCHC RDW Plt Count Lymph % (Auto) [place] % (Auto) Eos % (Auto) Baso % (Auto) Lymph # [place] # Eos # Baso # Seg Neutrophils % Seg Neutrophils # PT INR APTT Sodium Potassium Chloride Carbon Dioxide Anion Gap BUN Creatinine Estimated GFR BUN/Creatinine Ratio Glucose Calcium Troponin T < 0.010 Digoxin 1.0 Vital Signs - 24 hr 12/24/17 12/24/17 12/24/17 18:10 19:20 20:00 Temperature 97.4 F L 98.6 F 97.8 F Pulse Rate 76 71 66 Respiratory 18 18 16 Rate Blood Pressure 172/92 148/84 Blood Pressure 148/84 [Left] O2 Sat by Pulse 94 98 98 Oximetry 12/24/17 21:00 Temperature Pulse Rate 73 Respiratory 16 Rate Blood Pressure 158/110 Blood Pressure [Left] O2 Sat by Pulse 98 Oximetry - EKG Data 12/24/17 19:59 Atrial fibrillation rate of 70 normal axis normal QT interval +Q waves in anterior leads ST depressions in the lateral leads EKG is unchanged from 10/02/2017 12/24/17 20:01 - Medical Decision Making Mr. Mcintyre presents with chest pain palpitations related to age of fibrillation. He normally is in sinus rhythm. However is having mild discomfort with a arrhythmia. I did review cardiac cath report from January 2015 that did reveal normal coronary anatomy with minimal coronary artery disease. No indication of ACS. Patient desires to be discharged considering he has therapeutic INR and digoxin level. Critical care attestation.: If time is entered above; I have spent that time in minutes in the direct care of this critically ill patient, excluding procedure time. ED Disposition Clinical Impression: Atrial fibrillation, Chest pain Disposition: DC-01 TO HOME OR SELFCARE Is pt being admited?: No Does the pt Need Aspirin: No Condition: Stable Instructions: Chest Pain (ED), Atrial Fibrillation (ED) Referrals: GRAYSON CASTRO MD [Staff Physician] - 3-5 Days Time of Disposition: 22:39
[2017-12-24 23:20] VITALS: BP 148/84
== END 2017-12-24 22:45 | disposition home or self-care (01) ==
LOC: ED 17:56
DX: I48.91 Unspecified atrial fibrillation (principal); I11.0 Hypertensive heart disease with heart failure; G47.30 Sleep apnea, unspecified; Z88.5 Allergy status to narcotic agent; E11.9 Type 2 diabetes mellitus without complications; K21.9 Gastro-esophageal reflux disease without esophagitis; J45.909 Unspecified asthma, uncomplicated; Z87.891 Personal history of nicotine dependence; Z79.4 Long term (current) use of insulin
CPT/HCPCS: 36415; 80048; 80162; 84484; 85025; 85610; 85730; 93005; 93010; 99283

== ENCOUNTER 2018-01-13 15:13 | Inpatient (IN) | payer MEDICARE ==
[2018-01-13] MEDS ORDERED: ASPIRIN PO ONE (15:54)
[2018-01-13 16:33] LABS: Basophils # (Auto) 0.1 K/mm3 (0.0-0.1); Basophils % (Auto) 0.6 % (0.0-1.8); Eosinophils # (Auto) 0.1 K/mm3 (0.0-0.4); Eosinophils % (Auto) 0.5 % (0.0-4.3); Hematocrit 50.6 % (35.5-45.6); Hemoglobin 16.9 gm/dl (11.8-15.2); Lymphocytes # (Auto) 2.9 K/mm3 (1.2-5.4); Lymphocytes % (Auto) 28.9 % (13.4-35.0); Mean Corpuscular HGB Conc 33 % (32-34); Mean Corpuscular Hemoglobin 30 pg (28-32); Mean Corpuscular Volume 89 fl (84-94); Monocytes # (Auto) 0.8 K/mm3 (0.0-0.8); Monocytes % (Auto) 7.6 % (0.0-7.3); Platelet Count 162 K/mm3 (140-440); Red Cell Distribution Width 14.8 % (13.2-15.2)
[2018-01-13 16:41] LABS: INR 2.73 (0.87-1.13)
[2018-01-13 16:42] LABS: Partial Thromboplastin Time 45.4 Sec. (24.2-36.6)
[2018-01-13 16:50] LABS: Calcium 9.1 mg/dL (8.4-10.2)
[2018-01-13] MEDS ORDERED: ZOFRAN IV ONE (22:04)
[2018-01-13] MEDS ORDERED: MORPHINE IV ONE (22:04)
--- NOTE | 2018-01-13 22:08 | Emergency Department Report ---
ED Chest Pain HPI - General Chief Complaint: Chest Pain Stated Complaint: CHEST PAIN Time Seen by Provider: 01/13/18 21:56 Source: patient Mode of arrival: Ambulatory Limitations: No Limitations - History of Present Illness Initial Comments: Patient is 52 years old male with significant history of coronary artery disease , congestive heart failure hypertension diabetes patient is morbidly obese. Patient presented to the ER complaining of chest pain since yesterday, left- sided, 9 out of 10 intermittent. 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 Patient also complaining of shortness of breath but he stated that this is his usual symptoms. He denied any fever or cough. MD Complaint: chest pain -: Last night Pain Location: left chest Severity scale (0 -10): 9 Quality: heaviness, pressure Consistency: intermittent - Related Data Home Medications Medication Instructions Recorded Confirmed Last Taken Amiodarone [Cordarone 200 MG TAB] 200 mg PO DAILY 07/03/16 10/01/17 09/30/17 Carvedilol [Coreg] 6.25 mg PO BID 07/03/16 10/01/17 10/01/17 Digoxin 250 mcg PO QPM 07/03/16 10/01/17 09/30/17 Fluticasone Propionate [Flovent 1 puff IH BID PRN 07/03/16 10/01/17 10/01/17 Diskus] LORazepam [Ativan] 1 mg PO BID 07/03/16 10/01/17 10/01/17 Pravastatin Sodium [Pravastatin] 40 mg PO QPM 07/03/16 10/01/17 09/30/17 Warfarin [Coumadin] 7.5 mg PO DAILY 07/03/16 10/01/17 09/30/17 hydrALAZINE [Apresoline TAB] 100 mg PO TID 07/03/16 10/01/17 10/01/17 Sacubitril/Valsartan [Entresto 97 1 each PO BID 11/12/16 10/01/17 10/01/17 mg-103 mg Tablet] Insulin Aspart Protam & Aspart 60 unit SQ TID 10/01/17 10/01/17 10/01/17 [NovoLOG Mix 70-30 Flexpen] Previous Rx's Medication Instructions Recorded Last Taken Type Bumetanide [Bumex 1 mg tab] 1 mg PO 0600,1800 #60 tablet 10/07/17 Unknown Rx Allergies Allergy/AdvReac Type Severity Reaction Status Date / Time oxycodone Allergy Itching Verified 03/24/15 11:24 codeine AdvReac Itching Verified 03/24/15 11:24 Heart Score - HEART Score History: Moderately suspicious EKG: Non-specific Age: 45-65 Risk factors: > 3 risk factors or hx of atherosclerotic disease Troponin: < normal limit HEART Score: 5 - Critical Actions Critical Actions: 4-6 pts:12-16.6% risk of adverse cardiac event. Should be admitted ED Review of Systems ROS: Stated complaint: CHEST PAIN Other details as noted in HPI Comment: All other systems reviewed and negative ENT: denies: throat pain Respiratory: denies: cough, orthopnea, shortness of breath, SOB with exertion, SOB at rest, wheezing Cardiovascular: chest pain. denies: palpitations, dyspnea on exertion, orthopnea Gastrointestinal: denies: abdominal pain, nausea, vomiting, diarrhea, constipation, hematemesis, melena, hematochezia Musculoskeletal: denies: back pain Neurological: denies: headache, weakness, numbness, paresthesias, confusion, abnormal gait ED Past Medical Hx - Past Medical History Previous Medical History?: Yes Hx Hypertension: Yes Hx Heart Attack/AMI: No (CHF) Hx Congestive Heart Failure: Yes Hx Diabetes: Yes (5 YRS) Hx GERD: Yes Hx Headaches / Migraines: Yes (MIGRAINES) Hx Seizures: Yes (" MINOR ,LITTLE '') Hx Kidney Stones: Yes Hx Asthma: No Hx COPD: Yes Hx HIV: No Additional medical history: PAT. Chronic bilateral lower leg edema. Sleep apnea with C Pap. OBESITY - Surgical History Past Surgical History?: Yes Hx Pacemaker: No Additional Surgical History: kidney stone removal - Social History Smoking Status: Former Smoker Substance Use Type: Alcohol, Prescribed - Medications Home Medications: Home Medications Medication Instructions Recorded Confirmed Last Taken Type Amiodarone [Cordarone 200 MG TAB] 200 mg PO DAILY 07/03/16 10/01/17 09/30/17 History Carvedilol [Coreg] 6.25 mg PO BID 07/03/16 10/01/17 10/01/17 History Digoxin 250 mcg PO QPM 07/03/16 10/01/17 09/30/17 History Fluticasone Propionate [Flovent 1 puff IH BID PRN 07/03/16 10/01/17 10/01/17 History Diskus] LORazepam [Ativan] 1 mg PO BID 07/03/16 10/01/17 10/01/17 History Pravastatin Sodium [Pravastatin] 40 mg PO QPM 07/03/16 10/01/17 09/30/17 History Warfarin [Coumadin] 7.5 mg PO DAILY 07/03/16 10/01/17 09/30/17 History hydrALAZINE [Apresoline TAB] 100 mg PO TID 07/03/16 10/01/17 10/01/17 History Sacubitril/Valsartan [Entresto 97 1 each PO BID 11/12/16 10/01/17 10/01/17 History mg-103 mg Tablet] Insulin Aspart Protam & Aspart 60 unit SQ TID 10/01/17 10/01/17 10/01/17 History [NovoLOG Mix 70-30 Flexpen] Bumetanide [Bumex 1 mg tab] 1 mg PO 0600,1800 #60 tablet 10/07/17 Unknown Rx ED Physical Exam - General Limitations: No Limitations General appearance: alert, in no apparent distress - Head Head exam: Present: atraumatic, normocephalic, normal inspection - Eye Eye exam: Present: normal appearance - ENT ENT exam: Present: normal exam, normal orophraynx, mucous membranes moist - Neck Neck exam: Present: normal inspection, full ROM. Absent: tenderness, meningismus, lymphadenopathy - Respiratory Respiratory exam: Present: normal lung sounds bilaterally. Absent: respiratory distress, wheezes, rales, rhonchi, stridor, chest wall tenderness, accessory muscle use, decreased breath sounds, prolonged expiratory - Cardiovascular Cardiovascular Exam: Present: regular rate, normal rhythm, normal heart sounds - GI/Abdominal GI/Abdominal exam: Present: soft, normal bowel sounds. Absent: distended, tenderness, guarding, rebound, rigid, diminished bowel sounds, organomegaly, mass, bruit, pulsatile mass, hernia - Extremities Exam Extremities exam: Present: normal inspection, full ROM, normal capillary refill , pedal edema - Back Exam Back exam: Present: normal inspection, full ROM. Absent: CVA tenderness (R), CVA tenderness (L), muscle spasm, paraspinal tenderness, vertebral tenderness - Neurological Exam Neurological exam: Present: alert, oriented X3, CN II-XII intact, normal gait - Skin Skin exam: Present: warm, intact, normal color. Absent: cyanosis, diaphoretic, erythema ED Course Vital Signs 01/13/18 15:49 Temperature 98.5 F Pulse Rate 64 Respiratory 22 Rate Blood Pressure 113/67 O2 Sat by Pulse 96 Oximetry RICHARD score - Richard Score Age > 65: (0) No 3 or more CAD Risk Factors: (1) Yes 2 or more Angina events in past 24 hrs: (0) No Known CAD with more than 50% Stenosis: (1) Yes Elevated Cardiac Markers: (0) No ST Deviation Greater than 0.5mm: (0) No ED Medical Decision Making - Lab Data Result diagrams: 01/13/18 15:58 01/13/18 15:58 - EKG Data -: EKG Interpreted by Me Rate: normal - EKG Data Interpretation: no acute changes 01/13/18 22:07 Atrial fibrillation - Radiology Data Radiology results: report reviewed Referring Physician: GONZALO ARRINGTON Patient Name: GAB VALENTE Date of : 1965 Sex: Male Report Date: 2018-01-13 Report Status: [place] [address] XRay Report Signed Patient: GAB VALENTE MR#: [id number] : 1965 Acct:[id number] Age/Sex: 52 / M ADM Date: 01/13/18 Loc: ED Attending Dr: Ordering Physician: GONZALO ARRINGTON Date of Service: 01/13/18 Procedure(s): XR chest 1V ap Accession Number(s): [id number] cc: GONZALO ARRINGTON Fluoro Time In Minutes: FINAL REPORT PROCEDURE: XR CHEST 1V AP TECHNIQUE: Chest radiograph anteroposterior view. CPT 62086 HISTORY: chest pain COMPARISON: No prior studies are available for comparison. FINDINGS: Heart: Prominent cardiac silhouette Mediastinum/Vessels: Normal. Lungs/Pleural space: No infiltrate, effusion, or pneumothorax. Bony thorax: No acute osseous abnormality. Life support devices: None. IMPRESSION: Prominent cardiac silhouette Transcribed By: DENNY Dictated By: MANN AGRAWAL M.D. Electronically Authenticated By: MANN AGRAWAL M.D. Signed Date/Time: 01/13/182245 DD/ 45 TD/TT: 01/13/182245 - Medical Decision Making I discussed the patient is Dr. Chun, he agreed to admit the patient to his service. Critical care attestation.: If time is entered above; I have spent that time in minutes in the direct care of this critically ill patient, excluding procedure time. ED Disposition Clinical Impression: Chest pain, Elevated troponin I level Disposition: OP ADMIT IP TO THIS HOSP Is pt being admited?: Yes Condition: Stable Instructions: Chest Pain (ED) Referrals: RUFINA ALMEIDA MD [Primary Care Provider] - 3-5 Days
--- NOTE | 2018-01-13 22:50 | XRay Report ---
FINAL REPORT PROCEDURE: XR CHEST 1V AP TECHNIQUE: Chest radiograph anteroposterior view. CPT 28264 HISTORY: chest pain COMPARISON: No prior studies are available for comparison. FINDINGS: Heart: Prominent cardiac silhouette Mediastinum/Vessels: Normal. Lungs/Pleural space: No infiltrate, effusion, or pneumothorax. Bony thorax: No acute osseous abnormality. Life support devices: None. IMPRESSION: Prominent cardiac silhouette
[2018-01-13] MEDS ORDERED: ASPIRIN ONE (23:18)
[2018-01-14] MEDS ORDERED: MORPHINE IV PRN (00:41)
[2018-01-14] MEDS ORDERED: ZOFRAN IV PRN (00:42)
[2018-01-14] MEDS ORDERED: TYLENOL PO PRN (00:44)
[2018-01-14] MEDS ORDERED: NITROSTAT SL PRN (00:47)
[2018-01-14] MEDS ORDERED: K-DUR PO ONE ×2 (00:55→01:33)
[2018-01-14] MEDS ORDERED: NITRO-BID 2% TP ONE (01:32)
[2018-01-14] MEDS: NITRO-BID 2% TP SCH ×2 (01:35→08:02)
[2018-01-14 06:02] LABS: Calcium 8.5 mg/dL (8.4-10.2)
[2018-01-14 06:03] LABS: Creatine Kinase MB 1.4 ng/mL (0.0-4.0)
--- NOTE | 2018-01-14 07:52 | History and Physical Report ---
CHIEF COMPLAINT: Chest pain. HISTORY OF PRESENT ILLNESS: The patient is a 52-year-old male who presented with precordial chest pain going on for the last 24 hours. Pain is intermittent in nature and has the severity of 9/10, and was associated with shortness of breath, with no nausea, no vomiting. Also, there is no history of dizziness. 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 Lance, not too long ago and the playground worker plans to do a transesophageal echo to see if he can shock him out of his irregular heartbeat. PAST MEDICAL HISTORY: Pertinent for coronary artery disease, hypertension, obesity, cardiomyopathy with ejection fraction of about 35%. Also, the patient has past medical history of diabetes mellitus, atrial fibrillation. Also, the patient has past history of gastroesophageal reflux disease, migraine headaches, seizure disorder, kidney stones, chronic obstructive pulmonary disease, sleep apnea, treated with CPAP, and chronic bilateral leg edema. PAST SURGICAL HISTORY: Pertinent for kidney stone removal. FAMILY HISTORY: Noncontributory. SOCIAL HISTORY: The patient lives with the family. Used to smoke cigarette before, but does not smoke currently. Drinks alcohol occasionally. MEDICATIONS: The patient is on amiodarone 200 mg by mouth daily, carvedilol 6.25 mg by mouth twice daily, digoxin 250 mcg by mouth every evening, Flovent diskus one puff inhalation b.i.d., lorazepam 1 mg by mouth twice daily, pravastatin 40 mg by mouth in the evening, Coumadin 7.5 mg by mouth daily, Apresoline 100 mg by mouth 3 times daily, Entresto 97 mg/103 mg one by mouth twice daily, insulin Aspart 70/30 60 units subcutaneous t.i.d., Bumex 1 mg by mouth daily. ALLERGIES: The patient is allergic to oxycodone and codeine. REVIEW OF SYSTEMS: CONSTITUTIONAL: There is no fever, no chills, no diaphoresis. HEENT: There is no headache or sore throat. CARDIOVASCULAR SYSTEM: Chest pain is present. No orthopnea. RESPIRATORY SYSTEM: Shortness of breath is present. There is no cough. GASTROINTESTINAL SYSTEM: There is no nausea, no vomiting, no abdominal pain, diarrhea or constipation. NEUROLOGICAL SYSTEM: There is no numbness, no dizziness, no altered mental status. MUSCULOSKELETAL SYSTEM: There is no joint pain or swelling. DERMATOLOGICAL SYSTEM: There is no skin rash or itching. GENITOURINARY SYSTEM: There is no dysuria, hematuria or flank pain. Rest of system review is normal. PHYSICAL EXAMINATION: GENERAL: At the time of exam, the patient was found to be alert, oriented x 3, and not in acute distress. VITAL SIGNS: Initially at the time of presentation shows temperature of 98.5 degrees Fahrenheit, pulse of 64, respirations 22, blood pressure 113/67, O2 sat of 96% on room air. HEENT: Exam show pupils to be equal, round, and reactive to light and accommodation. Extraocular muscles are intact. NECK: Supple with no JVD or carotid bruit. CARDIOVASCULAR SYSTEM: Show normal first and second heart sounds with no gallops or murmurs. RESPIRATORY SYSTEM: Show good air entry on both sides of the lungs with no abnormal breath sounds. GASTROINTESTINAL SYSTEM: Show abdomen to be full, soft, and nontender with no organomegaly or rigidity. NEUROLOGICAL: Exam shows no focal deficit. MUSCULOSKELETAL SYSTEM: Show swelling in the ankles. DERMATOLOGICAL SYSTEM: Show no skin rash. GENITOURINARY SYSTEM: Showing no costovertebral angle tenderness. PERTINENT LABORATORY AND IMAGING STUDIES: The patient has CBC done with normal white count, elevated hemoglobin of 16.9, and elevated hematocrit of 50.6. Normal MCV. CBC differential showing elevated monocyte count of 7.6%. The patient's coagulation studies show elevated PT of 30.8 with high INR of 2.7, and high PTT of 45.4, and the patient is on blood thinner, Coumadin. The patient's chemistry shows normal sodium level with slightly low potassium of 3.5, low chloride of 92.9, and the patient's BUN level is normal with elevated creatinine of 1.6, blood sugar is elevated with a value of 253. The patient's troponin level came back unremarkable. The patient has had three levels already, which are normal. IMAGING STUDIES: The patient had chest x-ray done that shows prominent cardiac silhouette. DIAGNOSES: 1. Chest pain, rule out coronary artery disease. 2. Acute kidney injury. 3. Hypokalemia. PLAN: 1. The patient will be admitted to telemetry: 2. The patient will have cardiac enzymes involving troponin, total CK, and CK-MB. Check every 6 hours x 2 more levels. CARE OF PLAN: 1. The patient will have Cardiology consult for his [facility], Dr. Gretel Patel, who he is planning to do some procedure on the patient. 2. The patient will remain nothing by mouth. We will have Accu-Chek every 4 hours, followed by sliding scale using regular insulin using low sliding scale involving regular insulin coverage. 3. The patient will be on nitro paste 1-inch to the anterior chest wall every 6 hours and also will be on sublingual nitroglycerin for breakthrough chest pain. 4. The patient will be on intravenous morphine 2 mg every 5 minutes as needed for chest pain and intravenous Zofran 4 mg every 6 hours for nausea and vomiting. 5. The patient will have potassium chloride 40 mEq by mouth 1 and will be on aspirin 325 mg by mouth daily. 6. The patient will be on Tylenol 650 mg by mouth every 4 hours as needed for fever and headache, and will be nothing by mouth for Lexiscan stress test in the morning. 7. The patient will be placed on continuous positive airway pressure at bedtime and will be on oxygen by nasal cannula at 2 liter per minute. 8. The patient will have Nephrology consult with Dr. Manoj Mercado for acute kidney injury, and will have basic metabolic panel checked in the morning. JOB# [id number] OCN/NTS
[2018-01-14] MEDS ORDERED: D50W (25GM) Syringe IV PRN ×2 (09:46→09:49)
[2018-01-14] MEDS: ASPIRIN PO SCH (09:54)
--- NOTE | 2018-01-14 10:18 | Consultation ---
History of Present Illness Consult date: 01/14/18 Consult reason: chest pain History of present illness: This is a 52yr old morbidly obese male who has a history of dilated nonischemic cardiomyopathy by cardiac catheterization in 2014 that reports nonobstructive coronary artery disease, ejection fraction 30%. In addition, he has persistent atrial fibrillation and takes warfarin for oral anticoagulation. He presents to this hospital with complaints of chest pain, admitted for further evaluation with a thallium stress test ordered by the primary team. There were no reports of shortness of breath or palpitations. Laboratory studies shows acute renal failure with a creatinine of 2.7 today. INR therapeutic at 2.7. His cardiac enzymes were normal. His ECG shows atrial fibrillation with a well controlled ventricular rate. A cardiac consultation was requested for chest pain evaluation. Medications and Allergies Allergies Allergy/AdvReac Type Severity Reaction Status Date / Time oxycodone Allergy Itching Verified 03/24/15 11:24 codeine AdvReac Itching Verified 03/24/15 11:24 Home Medications Medication Instructions Recorded Confirmed Last Taken Type Amiodarone [Cordarone 200 MG TAB] 200 mg PO DAILY 07/03/16 10/01/17 09/30/17 History Carvedilol [Coreg] 6.25 mg PO BID 07/03/16 10/01/17 10/01/17 History Digoxin 250 mcg PO QPM 07/03/16 10/01/17 09/30/17 History Fluticasone Propionate [Flovent 1 puff IH BID PRN 07/03/16 10/01/17 10/01/17 History Diskus] LORazepam [Ativan] 1 mg PO BID 07/03/16 10/01/17 10/01/17 History Pravastatin Sodium [Pravastatin] 40 mg PO QPM 07/03/16 10/01/17 09/30/17 History Warfarin [Coumadin] 7.5 mg PO DAILY 07/03/16 10/01/17 09/30/17 History hydrALAZINE [Apresoline TAB] 100 mg PO TID 07/03/16 10/01/17 10/01/17 History Sacubitril/Valsartan [Entresto 97 1 each PO BID 11/12/16 10/01/17 10/01/17 History mg-103 mg Tablet] Insulin Aspart Protam & Aspart 60 unit SQ TID 10/01/17 10/01/17 10/01/17 History [NovoLOG Mix 70-30 Flexpen] Bumetanide [Bumex 1 mg tab] 1 mg PO 0600,1800 #60 tablet 10/07/17 Unknown Rx Active Meds: Active Medications Acetaminophen (Tylenol) 650 mg PO Q4H PRN PRN Reason: For Pain/Fever/Headache Aspirin (Aspirin) 325 mg PO QDAY CEZAR Last Admin: 01/14/18 09:54 Dose: 325 mg Dextrose (D50w (25gm) Syringe) 50 ml IV PRN PRN PRN Reason: Hypoglycemia Dextrose (D50w (25gm) Syringe) 50 ml IV PRN PRN PRN Reason: Hypoglycemia Insulin Human Lispro (Humalog) 0 unit SUB-Q ACHS CEZAR; Protocol Morphine Sulfate (Morphine) 2 mg IV Q5MIN PRN PRN Reason: Chest Pain Nitroglycerin (Nitrostat) 0.4 mg SL .Q5MIN PRN PRN Reason: Chest Pain Ondansetron HCl (Zofran) 4 mg IV Q6H PRN PRN Reason: Nausea And Vomiting Physical Examination Vital Signs Temp Pulse Resp BP Pulse Ox 98.5 F 64 22 113/67 96 01/13/18 15:49 01/13/18 15:49 01/13/18 15:49 01/13/18 15:49 01/13/18 15:49 General appearance: no acute distress, obese HEENT: Positive: PERRL Cardiac: Positive: irregularly irregular Results 01/13/18 15:58 01/14/18 05:04 Cardiac Enzymes 01/13/18 01/13/18 01/13/18 Range/Units 15:58 15:58 15:58 WBC 10.2 (4.5-11.0) K/mm3 RBC 5.70 H (3.65-5.03) M/mm3 Hgb 16.9 H (11.8-15.2) gm/dl Hct 50.6 H (35.5-45.6) % MCV 89 (84-94) fl MCH 30 (28-32) pg MCHC 33 (32-34) % RDW 14.8 (13.2-15.2) % Plt Count 162 (140-440) K/mm3 Lymph % (Auto) 28.9 (13.4-35.0) % [place] % (Auto) 7.6 H (0.0-7.3) % Eos % (Auto) 0.5 (0.0-4.3) % Baso % (Auto) 0.6 (0.0-1.8) % Lymph # 2.9 (1.2-5.4) K/mm3 [place] # 0.8 (0.0-0.8) K/mm3 Eos # 0.1 (0.0-0.4) K/mm3 Baso # 0.1 (0.0-0.1) K/mm3 Seg Neutrophils % 62.4 (40.0-70.0) % Seg Neutrophils # 6.4 (1.8-7.7) K/mm3 PT 30.8 H (12.2-14.9) Sec. INR 2.73 H (0.87-1.13) APTT 45.4 H (24.2-36.6) Sec. Sodium 139 (137-145) mmol/L Potassium 3.5 L (3.6-5.0) mmol/L Chloride 92.9 L (98-107) mmol/L Carbon Dioxide 29 (22-30) mmol/L Anion Gap 21 mmol/L BUN 20 (9-20) mg/dL Creatinine 1.6 H (0.8-1.5) mg/dL Estimated GFR 46 ml/min BUN/Creatinine Ratio 13 % Glucose 253 H (75-100) mg/dL POC Glucose (70-105) Calcium 9.1 (8.4-10.2) mg/dL Total Creatine Kinase (55-170) units/L CK-MB (CK-2) (0.0-4.0) ng/mL CK-MB (CK-2) Rel Index (0-4) Troponin T 0.013 (0.00-0.029) ng/mL 01/13/18 01/13/18 01/14/18 Range/Units 18:55 21:45 05:04 WBC (4.5-11.0) K/mm3 RBC (3.65-5.03) M/mm3 Hgb (11.8-15.2) gm/dl Hct (35.5-45.6) % MCV (84-94) fl MCH (28-32) pg MCHC (32-34) % RDW (13.2-15.2) % Plt Count (140-440) K/mm3 Lymph % (Auto) (13.4-35.0) % [place] % (Auto) (0.0-7.3) % Eos % (Auto) (0.0-4.3) % Baso % (Auto) (0.0-1.8) % Lymph # (1.2-5.4) K/mm3 [place] # (0.0-0.8) K/mm3 Eos # (0.0-0.4) K/mm3 Baso # (0.0-0.1) K/mm3 Seg Neutrophils % (40.0-70.0) % Seg Neutrophils # (1.8-7.7) K/mm3 PT (12.2-14.9) Sec. INR (0.87-1.13) APTT (24.2-36.6) Sec. Sodium (137-145) mmol/L Potassium (3.6-5.0) mmol/L Chloride (98-107) mmol/L Carbon Dioxide (22-30) mmol/L Anion Gap mmol/L BUN (9-20) mg/dL Creatinine (0.8-1.5) mg/dL Estimated GFR ml/min BUN/Creatinine Ratio % Glucose (75-100) mg/dL POC Glucose (70-105) Calcium (8.4-10.2) mg/dL Total Creatine Kinase 175 H (55-170) units/L CK-MB (CK-2) 1.4 (0.0-4.0) ng/mL CK-MB (CK-2) Rel Index 0.8 (0-4) Troponin T 0.015 < 0.010 0.021 (0.00-0.029) ng/mL 01/14/18 01/14/18 Range/Units 05:04 06:13 WBC (4.5-11.0) K/mm3 RBC (3.65-5.03) M/mm3 Hgb (11.8-15.2) gm/dl Hct (35.5-45.6) % MCV (84-94) fl MCH (28-32) pg MCHC (32-34) % RDW (13.2-15.2) % Plt Count (140-440) K/mm3 Lymph % (Auto) (13.4-35.0) % [place] % (Auto) (0.0-7.3) % Eos % (Auto) (0.0-4.3) % Baso % (Auto) (0.0-1.8) % Lymph # (1.2-5.4) K/mm3 [place] # (0.0-0.8) K/mm3 Eos # (0.0-0.4) K/mm3 Baso # (0.0-0.1) K/mm3 Seg Neutrophils % (40.0-70.0) % Seg Neutrophils # (1.8-7.7) K/mm3 PT (12.2-14.9) Sec. INR (0.87-1.13) APTT (24.2-36.6) Sec. Sodium 142 (137-145) mmol/L Potassium 3.3 L (3.6-5.0) mmol/L Chloride 95.5 L (98-107) mmol/L Carbon Dioxide 32 H (22-30) mmol/L Anion Gap 18 mmol/L BUN 26 H (9-20) mg/dL Creatinine 2.7 H D (0.8-1.5) mg/dL Estimated GFR 25 ml/min BUN/Creatinine Ratio 10 % Glucose 285 H (75-100) mg/dL POC Glucose 239 H (70-105) Calcium 8.5 (8.4-10.2) mg/dL Total Creatine Kinase (55-170) units/L CK-MB (CK-2) (0.0-4.0) ng/mL CK-MB (CK-2) Rel Index (0-4) Troponin T (0.00-0.029) ng/mL Coagulation 01/13/18 Range/Units 15:58 PT 30.8 H (12.2-14.9) Sec. INR 2.73 H (0.87-1.13) APTT 45.4 H (24.2-36.6) Sec. CBC 01/13/18 Range/Units 15:58 WBC 10.2 (4.5-11.0) K/mm3 RBC 5.70 H (3.65-5.03) M/mm3 Hgb 16.9 H (11.8-15.2) gm/dl Hct 50.6 H (35.5-45.6) % Plt Count 162 (140-440) K/mm3 Lymph # 2.9 (1.2-5.4) K/mm3 [place] # 0.8 (0.0-0.8) K/mm3 Eos # 0.1 (0.0-0.4) K/mm3 Baso # 0.1 (0.0-0.1) K/mm3 Comprehensive Metabolic Panel 01/13/18 01/14/18 Range/Units 15:58 05:04 Sodium 139 142 (137-145) mmol/L Potassium 3.5 L 3.3 L (3.6-5.0) mmol/L Chloride 92.9 L 95.5 L (98-107) mmol/L Carbon Dioxide 29 32 H (22-30) mmol/L BUN 20 26 H (9-20) mg/dL Creatinine 1.6 H 2.7 H D (0.8-1.5) mg/dL Glucose 253 H 285 H (75-100) mg/dL Calcium 9.1 8.5 (8.4-10.2) mg/dL Assessment and Plan Atypical chest pain Dilated Nonischemic cardiomyopathy Echocardiogram 09/2017 shows a moderate severity cardiomyopathy, ejection fraction 35-40%. [facility] 2014- no significant CAD, LVEF 30%. Afib persists on coumadin for oral anticoagulation. INR on 2.7 presentation. COPD DM Hypertension AILEEN
[2018-01-14] MEDS ORDERED: NON-FORMULARY (Fluticasone Propionate [Flovent Diskus] 1 PUFF) IH PRN (10:40)
--- NOTE | 2018-01-14 10:43 | Progress Note ---
Assessment and Plan Assessment and plan: --Acute on chronic hypoxic respiratory failure; Possible obesity hypoventilation syndrome/obstructive sleep apnea/morbid obesity Oxygen titrate O2 sats to more than 90%, BiPAP as needed Patient needs outpatient sleep study, home oxygen evaluation Pulmonary consultation --Acute exacerbation of COPD; nebulizers and IV steroids and antibiotics Inhalation steroids. Supportive care --Atypical chest pain; nonspecific possible non-cardiac Cardiology following, unable to do stress test due to morbid obesity Continue current cardiac medications --Acute on chronic systolic congestive heart failure; previous LVEF is 30%. continue anti-failure medications, and Output monitoring, low sodium diet, fluid restriction, cardiology following --Hypertension; moderate control, continue current antihypertensives and when necessary medications --Persistent chronic A. fib; now rate controlled Continue currentGene --Chronic anticoagulation; closely monitor INR therapeutic goal between 2 and 3 --Type 2 diabetes mellitus; Accu-Chek sliding scale coverage and ADA diet and insulin as needed --DVT prophylaxis with Lovenox Closely monitor the patient and adjust management as needed Plan of care reviewed with the patient and his nurse Also discussed with cardiologypractitioner History Interval history: Issues seen and examined medical records reviewed Admitted early this morning with chest pain, admitting physician recommended stress test However in view of morbid obesity, unable to do the stress test due to technical reasons Cardiology evaluated the patient Recommend conservative management Patient denies any chest pain however complains of shortness of breath On BiPAP at the time of my evaluation Alert awake Oriented 3 Vital signs reviewed Hospitalist Physical - Constitutional Vitals: Temp Pulse Resp BP Pulse Ox 97.4 F L 54 L 20 88/42 98 01/14/18 02:05 01/14/18 07:25 01/14/18 07:25 01/14/18 07:25 01/14/18 07:25 General appearance: Present: mild distress, well-nourished, obese (morbidly obese) - EENT Eyes: Present: PERRL, EOM intact - Neck Neck: Present: supple, normal ROM - Respiratory Respiratory effort: normal Respiratory: bilateral: diminished, negative: rales, rhonchi, wheezing - Cardiovascular Rhythm: regular Heart Sounds: Present: S1 & S2 - Extremities Extremities: no ischemia, No edema - Abdominal General gastrointestinal: soft, non-tender, non-distended, normal bowel sounds - Integumentary Integumentary: Present: clear, warm - Psychiatric Psychiatric: appropriate mood/affect, cooperative - Neurologic Neurologic: CNII-XII intact, moves all extremities Results - Labs CBC & Chem 7: 01/13/18 15:58 01/14/18 05:04 Labs: Laboratory Last Values WBC 10.2 K/mm3 (4.5-11.0) 01/13/18 15:58 RBC 5.70 M/mm3 (3.65-5.03) H 01/13/18 15:58 Hgb 16.9 gm/dl (11.8-15.2) H 01/13/18 15:58 Hct 50.6 % (35.5-45.6) H 01/13/18 15:58 MCV 89 fl (84-94) 01/13/18 15:58 MCH 30 pg (28-32) 01/13/18 15:58 MCHC 33 % (32-34) 01/13/18 15:58 RDW 14.8 % (13.2-15.2) 01/13/18 15:58 Plt Count 162 K/mm3 (140-440) 01/13/18 15:58 Lymph % (Auto) 28.9 % (13.4-35.0) 01/13/18 15:58 Schleicher % (Auto) 7.6 % (0.0-7.3) H 01/13/18 15:58 Eos % (Auto) 0.5 % (0.0-4.3) 01/13/18 15:58 Baso % (Auto) 0.6 % (0.0-1.8) 01/13/18 15:58 Lymph # 2.9 K/mm3 (1.2-5.4) 01/13/18 15:58 Schleicher # 0.8 K/mm3 (0.0-0.8) 01/13/18 15:58 Eos # 0.1 K/mm3 (0.0-0.4) 01/13/18 15:58 Baso # 0.1 K/mm3 (0.0-0.1) 01/13/18 15:58 Seg Neutrophils % 62.4 % (40.0-70.0) 01/13/18 15:58 Seg Neutrophils # 6.4 K/mm3 (1.8-7.7) 01/13/18 15:58 PT 30.8 Sec. (12.2-14.9) H 01/13/18 15:58 INR 2.73 (0.87-1.13) H 01/13/18 15:58 APTT 45.4 Sec. (24.2-36.6) H 01/13/18 15:58 Sodium 142 mmol/L (137-145) 01/14/18 05:04 Potassium 3.3 mmol/L (3.6-5.0) L 01/14/18 05:04 Chloride 95.5 mmol/L (98-107) L 01/14/18 05:04 Carbon Dioxide 32 mmol/L (22-30) H 01/14/18 05:04 Anion Gap 18 mmol/L 01/14/18 05:04 BUN 26 mg/dL (9-20) H 01/14/18 05:04 Creatinine 2.7 mg/dL (0.8-1.5) H D 01/14/18 05:04 Estimated GFR 25 ml/min 01/14/18 05:04 BUN/Creatinine Ratio 10 % 01/14/18 05:04 Glucose 285 mg/dL (75-100) H 01/14/18 05:04 POC Glucose 239 (70-105) H 01/14/18 06:13 Calcium 8.5 mg/dL (8.4-10.2) 01/14/18 05:04 Total Creatine Kinase 175 units/L (55-170) H 01/14/18 05:04 CK-MB (CK-2) 1.4 ng/mL (0.0-4.0) 01/14/18 05:04 CK-MB (CK-2) Rel Index 0.8 (0-4) 01/14/18 05:04 Troponin T 0.021 ng/mL (0.00-0.029) 01/14/18 05:04
[2018-01-14] MEDS ORDERED: PULMICORT IH PRN (11:53)
[2018-01-14] MEDS: HumaLOG SUB-Q SCH ×2 (12:28→17:06)
[2018-01-14] MEDS ORDERED: INSULIN ASPART PROTAM SQ SCH (14:00)
[2018-01-14] MEDS ORDERED: ASPART SQ SCH (14:00)
[2018-01-14] MEDS: APRESOLINE PO SCH ×2 (15:12→21:24)
--- NOTE | 2018-01-14 15:27 | Consultation ---
History of Present Illness - Reason for Consult Consult date: 01/14/18 acute renal failure, hypokalemia - History of Present Illness The patient is a 52 YO male with history significant for Morbidly Obesity, long standing DM type 2, HTN, CAD, Systolic CHF and A.fib who presented to the ER with complaining of chest pain off and on for the past 2 months. He gets pain every other day, lasting for few minutes, left-sided and 9 out of 10. Patient also reports some sob associated with CP. His creatinine level has increased from 1.6 yesterday to 2.7 today. BP is around 88/42. He denied any fever, chills, N, V, D, abd pain, dysuria, hematuria, cough, rash, dizziness or syncope. He is currently not followed by any Branch Director. Past History Past Medical History: CAD, diabetes, heart failure, hypertension, other (Morbid Obesity) Medications and Allergies Allergies Allergy/AdvReac Type Severity Reaction Status Date / Time codeine Allergy Itching Verified 01/14/18 11:35 oxycodone Allergy Itching Verified 03/24/15 11:24 Home Medications Medication Instructions Recorded Confirmed Last Taken Type Amiodarone [Cordarone 200 MG TAB] 200 mg PO DAILY 07/03/16 10/01/17 09/30/17 History Carvedilol [Coreg] 6.25 mg PO BID 07/03/16 10/01/17 10/01/17 History Digoxin 250 mcg PO QPM 07/03/16 10/01/17 09/30/17 History Fluticasone Propionate [Flovent 1 puff IH BID PRN 07/03/16 10/01/17 10/01/17 History Diskus] LORazepam [Ativan] 1 mg PO BID 07/03/16 10/01/17 10/01/17 History Pravastatin Sodium [Pravastatin] 40 mg PO QPM 07/03/16 10/01/17 09/30/17 History Warfarin [Coumadin] 7.5 mg PO DAILY 07/03/16 10/01/17 09/30/17 History hydrALAZINE [Apresoline TAB] 100 mg PO TID 07/03/16 10/01/17 10/01/17 History Sacubitril/Valsartan [Entresto 97 1 each PO BID 04/12/2410/01/17 10/01/17 History mg-103 mg Tablet] Insulin Aspart Protam & Aspart 60 unit SQ TID 10/01/17 10/01/17 10/01/17 History [NovoLOG Mix 70-30 Flexpen] Bumetanide [Bumex 1 mg tab] 1 mg PO 0600,1800 #60 tablet 10/07/17 Unknown Rx Active Meds: Active Medications Acetaminophen (Tylenol) 650 mg PO Q4H PRN PRN Reason: For Pain/Fever/Headache Amiodarone HCl (Cordarone) 200 mg PO DAILY [facility] Aspirin (Aspirin) 325 mg PO QDAY [facility] Last Admin: 01/14/18 09:54 Dose: 325 mg Budesonide (Pulmicort) 1 mg IH Q12HRT PRN PRN Reason: Shortness Of Breath Bumetanide (Bumex) 1 mg PO 0600,1800 [facility] Carvedilol (Coreg) 6.25 mg PO BID [facility] Dextrose (D50w (25gm) Syringe) 50 ml IV PRN PRN PRN Reason: Hypoglycemia Dextrose (D50w (25gm) Syringe) 50 ml IV PRN PRN PRN Reason: Hypoglycemia Digoxin (Lanoxin) 0.25 mg PO QPM [facility] Hydralazine HCl (Apresoline) 100 mg PO TID [facility] Last Admin: 01/14/18 15:12 Dose: Not Given Insulin Human Isoph/Insulin Regular (Humulin 70/30) 60 unit SUB-Q BIDDIAB [facility] Insulin Human Lispro (Humalog) 0 unit SUB-Q ACHS [facility]; Protocol Last Admin: 01/14/18 12:28 Dose: 4 unit Lorazepam (Ativan) 1 mg PO BID [facility] Miscellaneous Medication (Sacubitril/Valsartan [Entresto 97 Mg-103 Mg Tablet]) 1 each PO BID [facility] Morphine Sulfate (Morphine) 2 mg IV Q5MIN PRN PRN Reason: Chest Pain Nitroglycerin (Nitrostat) 0.4 mg SL .Q5MIN PRN PRN Reason: Chest Pain Ondansetron HCl (Zofran) 4 mg IV Q6H PRN PRN Reason: Nausea And Vomiting Pravastatin Sodium (Pravachol) 40 mg PO QHS [facility] Review of Systems Constitutional: no weight loss, no weight gain, no fever, no chills, no anorexia , no weakness, no poor appetite Ears, nose, mouth and throat: no epistaxis Cardiovascular: chest pain, orthopnea, edema, shortness of breath, dyspnea on exertion, high blood pressure, leg edema, decreased exercise tolerance, no palpitations, no syncope, no lightheadedness Respiratory: shortness of breath, dyspnea on exertion, sleep apnea, no cough Gastrointestinal: no abdominal pain, no nausea, no vomiting, no diarrhea, no jaundice Genitourinary Male: no dysuria, no hematuria Musculoskeletal: other (back pain) Integumentary: no rash, no wounds, no jaundice Neurological: no seizures, no syncope, no convulsions, no aphasia Exam - Vital Signs Vital signs: Vital Signs Temp Pulse Resp BP Pulse Ox 98.5 F 64 22 113/67 96 01/13/18 15:49 01/13/18 15:49 01/13/18 15:49 01/13/18 15:49 01/13/18 15:49 - General Appearance General appearance: well-developed, well-nourished, appears stated age, obese, other (no distress) EENT: ATNC, PERRL, mucous membranes dry, hearing intact, vision intact Neck: Present: neck supple, trachea midline Respiratory: Clear to Ascultation Heart: S1S2, no murmurs Gastrointestinal: Present: normoactive bowel sounds, obese. Absent: tenderness Integumentary: no rash, warm and dry Neurologic: no focal deficit, no asterixis, alert and oriented x3 Musculoskeletal: Present: other (trace pedal edema noted) Psychiatric: mood/affect appropriate, cooperative Results - Lab Results 01/13/18 15:58 01/14/18 05:04 Most recent lab results Calcium 8.5 mg/dL (8.4-10.2) 01/14/18 05:04 - Image Kidney/bladder ultrasound: pending Assessment and Plan 1. Acute kidney injury: CINTIA is likely Vasomotor / hemodynamically mediated in the setting of hypotension. Patient appears to be volume depleted. Start on IV fluids. Monitor renal function. Renal US and Urine studies. 2. Hypotension: IV fluids. 3. Chest pain: Followed by Cards. 4. Electrolytes: Hypokalemia, Replete K. Metabolic alkalosis. 5. Systolic CHF. 6. A.fib.
[2018-01-14 16:25] LABS: Creatine Kinase MB 1.6 ng/mL (0.0-4.0)
[2018-01-14] MEDS: LANOXIN PO SCH (17:27)
[2018-01-14] MEDS: BUMEX PO SCH (17:27)
[2018-01-14] MEDS ORDERED: NON-FORMULARY (Pravastatin Sodium [Pravastatin] 40 MG) PO SCH (18:00)
--- NOTE | 2018-01-14 18:28 | Consultation ---
History of Present Illness Consult date: 01/14/18 Reason for consult: chest pain, COPD, obstructive sleep apnea History of present illness: PULMONARY CONSULTATION Dr. Polk thank you for asking us to participate in the care of this patient. This 52 year old white male Morbidly obese history of sleep apnea admitted to the hospital with chest pain , Palpatation and shortness of breath.Patient has history of coronary artery disease, hypertension and cardiomyopathy with ejection fraction of 35%. Patient has history of COPD and sleep apnea.Patient is on CPAP 13 cm H2O pressure.Patient has history of smoking 2 packs a day for 25 years. Stopped smoking 5 years ago. 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 Patient alert, awake and sitting in chair. O2 saturation 97% on room air. Using CPAP during night time. Obtaining ABGs on room air. Past History Past Medical History: atrial fib, CAD, COPD, diabetes, heart failure, hypertension, other (Morbid Obesity,Obstructive sleep apnea.) Medications and Allergies Allergies Allergy/AdvReac Type Severity Reaction Status Date / Time codeine Allergy Itching Verified 01/14/18 11:35 oxycodone Allergy Itching Verified 03/24/15 11:24 Home Medications Medication Instructions Recorded Confirmed Last Taken Type Amiodarone [Cordarone 200 MG TAB] 200 mg PO DAILY 07/03/16 10/01/17 09/30/17 History Carvedilol [Coreg] 6.25 mg PO BID 07/03/16 10/01/17 10/01/17 History Digoxin 250 mcg PO QPM 07/03/16 10/01/17 09/30/17 History Fluticasone Propionate [Flovent 1 puff IH BID PRN 07/03/16 10/01/17 10/01/17 History Diskus] LORazepam [Ativan] 1 mg PO BID 07/03/16 10/01/17 10/01/17 History Pravastatin Sodium [Pravastatin] 40 mg PO QPM 07/03/16 10/01/17 09/30/17 History Warfarin [Coumadin] 7.5 mg PO DAILY 07/03/16 10/01/17 09/30/17 History hydrALAZINE [Apresoline TAB] 100 mg PO TID 07/03/16 10/01/17 10/01/17 History Sacubitril/Valsartan [Entresto 97 1 each PO BID 11/12/16 10/01/17 10/01/17 History mg-103 mg Tablet] Insulin Aspart Protam & Aspart 60 unit SQ TID 10/01/17 10/01/17 10/01/17 History [NovoLOG Mix 70-30 Flexpen] Bumetanide [Bumex 1 mg tab] 1 mg PO 0600,1800 #60 tablet 10/07/17 Unknown Rx Active Meds: Active Medications Acetaminophen (Tylenol) 650 mg PO Q4H PRN PRN Reason: For Pain/Fever/Headache Amiodarone HCl (Cordarone) 200 mg PO DAILY [facility] Aspirin (Aspirin) 325 mg PO QDAY [facility] Last Admin: 01/14/18 09:54 Dose: 325 mg Budesonide (Pulmicort) 1 mg IH Q12HRT PRN PRN Reason: Shortness Of Breath Bumetanide (Bumex) 1 mg PO 0600,1800 [facility] Last Admin: 01/14/18 17:27 Dose: 1 mg Carvedilol (Coreg) 6.25 mg PO BID [facility] Dextrose (D50w (25gm) Syringe) 50 ml IV PRN PRN PRN Reason: Hypoglycemia Dextrose (D50w (25gm) Syringe) 50 ml IV PRN PRN PRN Reason: Hypoglycemia Digoxin (Lanoxin) 0.25 mg PO QPM [facility] Last Admin: 01/14/18 17:27 Dose: Not Given Hydralazine HCl (Apresoline) 100 mg PO TID [facility] Last Admin: 01/14/18 15:12 Dose: Not Given Insulin Human Isoph/Insulin Regular (Humulin 70/30) 60 unit SUB-Q BIDDIAB [facility] Last Admin: 01/14/18 17:26 Dose: 60 unit Insulin Human Lispro (Humalog) 0 unit SUB-Q ACHS [facility]; Protocol Last Admin: 01/14/18 17:06 Dose: Not Given Lorazepam (Ativan) 1 mg PO BID [facility] Miscellaneous Medication (Sacubitril/Valsartan [Entresto 97 Mg-103 Mg Tablet]) 1 each PO BID [facility] Morphine Sulfate (Morphine) 2 mg IV Q5MIN PRN PRN Reason: Chest Pain Nitroglycerin (Nitrostat) 0.4 mg SL .Q5MIN PRN PRN Reason: Chest Pain Ondansetron HCl (Zofran) 4 mg IV Q6H PRN PRN Reason: Nausea And Vomiting Pravastatin Sodium (Pravachol) 40 mg PO QHS [facility] Review of Systems All systems: negative Physical Examination Vital signs: Vital Signs Temp Pulse Resp BP Pulse Ox 98.5 F 64 22 113/67 96 01/13/18 15:49 01/13/18 15:49 01/13/18 15:49 01/13/18 15:49 01/13/18 15:49 General appearance: no acute distress, alert, other (Morbidly Obese.) Eyes: non-icteric ENT: oropharynx moist Neck: supple, no JVD Ascultation: Bilateral: diminished breath sounds Cardiovascular: irregular rhythm Gastrointestinal: normoactive bowel sounds, soft, non-tender Integumentary: normal Extremities: no cyanosis, edema (Trace edema.) Musculoskeletal: no deformities Gait: poor gait normal mental status, non-focal exam, pupils equal and round, CN II-XII normal mood appropriate Results - Laboratory Findings CBC and BMP: 01/13/18 15:58 01/14/18 05:04 PT/INR, D-dimer PT 30.8 Sec. (12.2-14.9) H 01/13/18 15:58 INR 2.73 (0.87-1.13) H 01/13/18 15:58 Abnormal lab findings: Abnormal Labs 01/13/18 01/13/18 01/13/18 15:58 15:58 15:58 RBC 5.70 H Hgb 16.9 H Hct 50.6 H Evans % (Auto) 7.6 H PT 30.8 H INR 2.73 H APTT 45.4 H Potassium 3.5 L Chloride 92.9 L Carbon Dioxide BUN Creatinine 1.6 H Glucose 253 H POC Glucose Total Creatine Kinase 01/14/18 01/14/18 01/14/18 05:04 05:04 06:13 RBC Hgb Hct Evans % (Auto) PT INR APTT Potassium 3.3 L Chloride 95.5 L Carbon Dioxide 32 H BUN 26 H Creatinine 2.7 H D Glucose 285 H POC Glucose 239 H Total Creatine Kinase 175 H 01/14/18 01/14/18 01/14/18 11:16 12:38 16:40 RBC Hgb Hct Evans % (Auto) PT INR APTT Potassium Chloride Carbon Dioxide BUN Creatinine Glucose POC Glucose 285 H 292 H Total Creatine Kinase 200 H - Diagnostic Findings Chest x-ray: report reviewed (Reported prominent cardiac silhouttee.), image reviewed Assessment and Plan his 52 year old white male Morbidly obese history of sleep apnea admitted to the hospital with chest pain , Palpatation and shortness of breath.Patient has history of coronary artery disease, hypertension and cardiomyopathy with ejection fraction of 35%. Patient has history of COPD and sleep apnea.Patient is on CPAP 13 cm H2O pressure.Patient has history of smoking 2 packs a day for 25 years. Stopped smoking 5 years ago. 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 Patient alert, awake and sitting in chair. O2 saturation 97% on room air. Using CPAP during night time. Obtaining ABGs on room air. - Patient Problems (1) CHF exacerbation Current Visit: No Status: Acute Plan to address problem: Management as per cardiology. (2) Chest pain Current Visit: Yes Status: Acute Plan to address problem: Management as per cardiology. (3) Elevated troponin I level Current Visit: Yes Status: Acute Plan to address problem: Management as per cardiology (4) Atrial fibrillation Current Visit: No Status: Chronic Qualifiers: Plan to address problem: Mangement as per cardiology (5) Morbid obesity with BMI of 50.0-59.9, adult Current Visit: No Status: Chronic Plan to address problem: Recommend to loose weight Weight reduction diet. (6) AILEEN on CPAP Current Visit: No Status: Chronic Plan to address problem: CPAP 13 cm H2O pressure. (7) Diabetes Current Visit: No Status: Acute Plan to address problem: Management as per primary care. (8) Hypertension Current Visit: No Status: Chronic Plan to address problem: Management as per primary care. (9) COPD (chronic obstructive pulmonary disease) Current Visit: No Status: Chronic Plan to address problem: Brovanna/Budesonide aerosol treatments q 12 hours.
[2018-01-14 20:49] LABS: Bilirubin,Urine NEG (Negative); Blood,Urine MOD (Negative); Color,Urine Yellow (Yellow); Mucus,Urine FEW /HPF; Protein,Urine <15 mg/dL mg/dL (Negative); Urobilinogen,Urine < 2.0 mg/dL (<2.0)
[2018-01-14] MEDS: COREG PO SCH (21:23)
[2018-01-14] MEDS: PRAVACHOL PO SCH (21:24)
[2018-01-14] MEDS: ATIVAN PO SCH (21:24)
[2018-01-14] MEDS ORDERED: NON-FORMULARY (Sacubitril/Valsartan [Entresto 97 Mg-103 Mg Tablet] 1 EACH) PO SCH (22:00)
[2018-01-14 22:22] LABS: Creatinine,Urine 130.1 mg/dL (0.1-20.0)
[2018-01-15] MEDS: HumaLOG SUB-Q SCH ×5 (01:30→21:41)
[2018-01-15 06:36] LABS: Hematocrit 45.7 % (35.5-45.6); Hemoglobin 15.3 gm/dl (11.8-15.2); Mean Corpuscular HGB Conc 33 % (32-34); Mean Corpuscular Hemoglobin 30 pg (28-32); Mean Corpuscular Volume 89 fl (84-94); Platelet Count 125 K/mm3 (140-440); Red Blood Count 5.16 M/mm3 (3.65-5.03); Red Cell Distribution Width 14.5 % (13.2-15.2)
[2018-01-15] MEDS: BUMEX PO SCH (07:00)
[2018-01-15 07:08] LABS: Albumin 3.2 g/dL (3.9-5); Calcium 8.6 mg/dL (8.4-10.2)
[2018-01-15] MEDS: APRESOLINE PO SCH ×3 (08:04→21:40)
[2018-01-15 08:44] LABS: Total Cells Counted 100
[2018-01-15 08:46] LABS: Basophils % (Manual) 0 % (0.0-1.8); Platelet Estimate Consistent w Auto
--- NOTE | 2018-01-15 09:02 | Progress Note ---
Assessment and Plan 1. Acute kidney injury: CINTIA is likely Vasomotor / hemodynamically mediated in the setting of hypotension. Renal function is better today. Monitor renal function. 2. Hypotension: BP is better. Hold diuretics for now. 3. Chest pain: Followed by Cards. 4. Electrolytes: K is 4 today. Metabolic alkalosis, improving. 5. Systolic CHF. 6. A.fib. Subjective Date of service: 01/15/18 Interval history: Patient is feeling better. Objective - Vital Signs Vital signs: Vital Signs - 12hr 01/14/18 01/15/18 22:00 04:51 Temperature 98.1 F Pulse Rate 65 64 Respiratory 20 Rate Blood Pressure 117/73 [Left] O2 Sat by Pulse 95 Oximetry - General Appearance General appearance: well-developed, well-nourished, appears stated age, obese, other (no distress, sitting in the chair) EENT: ATNC, PERRL, hearing intact, vision intact Neck: supple Respiratory: Present: Clear to Ascultation Cardiology: regular, S1S2, no murmurs Gastrointestinal: normoactive bowel sounds, no tenderness, obese Integumentary: chronic venous stasis Neurologic: no focal deficit, no asterixis, alert and oriented x3 Musculoskeletal: other (trace pedal edema bilaterally) Psychiatric: cooperative - Lab 01/15/18 05:25 01/15/18 05:25 Most recent lab results Calcium 8.6 mg/dL (8.4-10.2) 01/15/18 05:25 Urine Creatinine 130.1 mg/dL (0.1-20.0) H 01/14/18 Unknown Urine Sodium 42 mmol/L 01/14/18 Unknown
--- NOTE | 2018-01-15 09:10 | Ultrasound Report ---
ULTRASOUND RENAL BILATERAL HISTORY: Acute renal failure. TECHNIQUE: transabdominal ultrasound with color Doppler interrogation. FINDINGS: Scans of the kidneys show normal renal contours. There is normal central calyceal clustering and good preservation of the cortical thickness. There is no evidence of mass or hydronephrosis. The bladder is empty and poorly evaluated. No gross abnormality. IMPRESSION: Unremarkable renal ultrasound.
[2018-01-15] MEDS: BROVANA NEBU IH SCH ×2 (09:13→21:10)
[2018-01-15] MEDS: CORDARONE PO SCH (10:50)
[2018-01-15] MEDS: ATIVAN PO SCH ×2 (10:50→21:40)
[2018-01-15] MEDS: ASPIRIN PO SCH (10:50)
[2018-01-15] MEDS: COREG PO SCH ×2 (10:50→21:39)
--- NOTE | 2018-01-15 11:15 | Progress Note ---
Assessment and Plan Atypical chest pain Acute renal failure Dilated Nonischemic cardiomyopathy Echocardiogram 09/2017 shows a moderate severity cardiomyopathy, ejection fraction 35-40%. [facility] 2014- no significant CAD, LVEF 30%. Afib persists on coumadin as an outpatient for oral anticoagulation. INR on 2.7 presentation. COPD DM Hypertension AILEEN Morbidly obese Recommendations: Continue medical therapy for nonischemic cardiomyopathy, rate control and oral anticoagulation for atrial fibrillation. Otherwise, conservative cardiac medical management. The patient states that his outpatient banking paralegal plans a cardioversion procedure in the future if his atrial fibrillation persists. Subjective Date of service: 01/15/18 Interval history: Patient denies chest pain, shortness of breath and palpitations. Atrial fibrillation with a well controlled ventricular rate on telemetry. Objective Vital Signs Temp Pulse Pulse Pulse Resp Resp Resp 01/15/18 09:23 69 69 22 22 01/15/18 09:13 68 21 01/15/18 04:51 98.1 F 64 20 01/14/18 22:00 65 01/14/18 21:01 18 01/14/18 20:50 01/14/18 19:49 97.9 F 68 20 01/14/18 17:27 57 L 01/14/18 16:26 97.9 F 57 L 20 BP BP Pulse Ox 01/15/18 09:23 01/15/18 09:13 98 01/15/18 04:51 117/73 95 01/14/18 22:00 01/14/18 21:01 01/14/18 20:50 94 01/14/18 19:49 112/68 98 01/14/18 17:27 01/14/18 16:26 139/53 97 - Physical Examination General: No Apparent Distress HEENT: Positive: PERRL Cardiac: Positive: irregularly irregular Neuro: Positive: Grossly Intact - Labs and Meds Cardiac Enzymes 01/14/18 01/15/18 Range/Units 12:38 05:25 AST 28 (5-40) units/L CK-MB (CK-2) 1.6 (0.0-4.0) ng/mL CBC 01/15/18 Range/Units 05:25 WBC 8.3 (4.5-11.0) K/mm3 RBC 5.16 H (3.65-5.03) M/mm3 Hgb 15.3 H (11.8-15.2) gm/dl Hct 45.7 H (35.5-45.6) % Plt Count 125 L (140-440) K/mm3 Lymph # Not Reportable [place] # Not Reportable Eos # Not Reportable Baso # Not Reportable Comprehensive Metabolic Panel 01/15/18 Range/Units 05:25 Sodium 137 (137-145) mmol/L Potassium 4.0 D (3.6-5.0) mmol/L Chloride 94.0 L (98-107) mmol/L Carbon Dioxide 29 (22-30) mmol/L BUN 29 H (9-20) mg/dL Creatinine 1.8 H (0.8-1.5) mg/dL Glucose 250 H (75-100) mg/dL Calcium 8.6 (8.4-10.2) mg/dL AST 28 (5-40) units/L ALT 15 (7-56) units/L Alkaline Phosphatase 65 (35-129) units/L Total Protein 6.7 (6.3-8.2) g/dL Albumin 3.2 L (3.9-5) g/dL
[2018-01-15] MEDS: LANOXIN PO SCH (18:02)
--- NOTE | 2018-01-15 18:18 | Progress Note ---
Assessment and Plan his 52 year old white male Morbidly obese history of sleep apnea admitted to the hospital with chest pain , Palpatation and shortness of breath.Patient has history of coronary artery disease, hypertension and cardiomyopathy with ejection fraction of 35%. Patient has history of COPD and sleep apnea.Patient is on CPAP 13 cm H2O pressure.Patient has history of smoking 2 packs a day for 25 years. Stopped smoking 5 years ago. 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 Patient alert, awake and sitting in chair. O2 saturation 97% on room air. Using CPAP during night time. Obtaining ABGs on room air. 01/15/18 Patient alert, awake. resting on CPAP.O2 saturation 93%. Denies shortness of breath at rest.Still complaining episodes of chest pain - Patient Problems (1) CHF exacerbation Current Visit: No Status: Acute Plan to address problem: Management as per cardiology. (2) Chest pain Current Visit: Yes Status: Acute Plan to address problem: Management as per cardiology. (3) Elevated troponin I level Current Visit: Yes Status: Acute Plan to address problem: Management as per cardiology (4) Atrial fibrillation Current Visit: No Status: Chronic Qualifiers: Plan to address problem: Mangement as per cardiology (5) Morbid obesity with BMI of 50.0-59.9, adult Current Visit: No Status: Chronic Plan to address problem: Recommend to loose weight Weight reduction diet. (6) AILEEN on CPAP Current Visit: No Status: Chronic Plan to address problem: CPAP 13 cm H2O pressure. (7) Diabetes Current Visit: No Status: Acute Plan to address problem: Management as per primary care. (8) Hypertension Current Visit: No Status: Chronic Plan to address problem: Management as per primary care. (9) COPD (chronic obstructive pulmonary disease) Current Visit: No Status: Chronic Plan to address problem: Brovanna/Budesonide aerosol treatments q 12 hours. Subjective Date of service: 01/15/18 Interval history: Patient alert, awake. resting on CPAP.O2 saturation 93%. Denies shortness of breath at rest.Still complaining episodes of chest pain. Objective Vital Signs - 12hr 01/15/18 01/15/18 01/15/18 09:13 09:23 12:09 Temperature 97.9 F Pulse Rate 80 Pulse Rate [ 68 69 Anterior Bilateral] Pulse Rate [ 69 Bilateral Throughout] Respiratory 20 Rate Respiratory 21 22 Rate [Anterior Bilateral] Respiratory 22 Rate [Bilateral Throughout] Blood Pressure 114/67 O2 Sat by Pulse 98 93 Oximetry 01/15/18 13:57 Temperature Pulse Rate 80 Pulse Rate [ Anterior Bilateral] Pulse Rate [ Bilateral Throughout] Respiratory Rate Respiratory Rate [Anterior Bilateral] Respiratory Rate [Bilateral Throughout] Blood Pressure O2 Sat by Pulse Oximetry Constitutional: no acute distress, alert, other (Morbidly Obese.) Eyes: non-icteric ENT: oropharynx moist Neck: supple, no JVD Ascultation: Bilateral: diminished breath sounds Cardiovascular: irregular rhythm Gastrointestinal: normoactive bowel sounds, soft, non-tender Integumentary: normal Extremities: no cyanosis, edema (Trace edema.) Neurologic: normal mental status, non-focal exam, pupils equal and round, CN II- XII normal Psychiatric: mood appropriate CBC and BMP: 01/15/18 05:25 01/15/18 05:25 ABG, PT/INR, D-dimer: ABG POC ABG pH 7.386 (7.35-7.45) 01/14/18 20:50 POC ABG pCO2 48.6 (35-45) H 01/14/18 20:50 POC ABG pO2 71 (80-105) L 01/14/18 20:50 POC ABG HCO3 29.2 01/14/18 20:50 POC ABG Total CO2 31 01/14/18 20:50 POC ABG O2 Sat 94 01/14/18 20:50 PT/INR, D-dimer PT 30.8 Sec. (12.2-14.9) H 01/13/18 15:58 INR 2.73 (0.87-1.13) H 01/13/18 15:58 Abnormal lab findings: Abnormal Labs 01/13/18 01/13/18 01/13/18 15:58 15:58 15:58 RBC 5.70 H Hgb 16.9 H Hct 50.6 H Plt Count [place] % (Auto) 7.6 H Monocytes % (Manual) Eosinophils % (Manual) Eosinophils # (Manual) PT 30.8 H INR 2.73 H APTT 45.4 H POC ABG pCO2 POC ABG pO2 Potassium 3.5 L Chloride 92.9 L Carbon Dioxide BUN Creatinine 1.6 H Glucose 253 H POC Glucose Total Creatine Kinase Albumin Urine Creatinine 01/14/18 01/14/18 01/14/18 05:04 05:04 06:13 RBC Hgb Hct Plt Count [place] % (Auto) Monocytes % (Manual) Eosinophils % (Manual) Eosinophils # (Manual) PT INR APTT POC ABG pCO2 POC ABG pO2 Potassium 3.3 L Chloride 95.5 L Carbon Dioxide 32 H BUN 26 H Creatinine 2.7 H D Glucose 285 H POC Glucose 239 H Total Creatine Kinase 175 H Albumin Urine Creatinine 01/14/18 01/14/18 01/14/18 11:16 12:38 16:40 RBC Hgb Hct Plt Count [place] % (Auto) Monocytes % (Manual) Eosinophils % (Manual) Eosinophils # (Manual) PT INR APTT POC ABG pCO2 POC ABG pO2 Potassium Chloride Carbon Dioxide BUN Creatinine Glucose POC Glucose 285 H 292 H Total Creatine Kinase 200 H Albumin Urine Creatinine 01/14/18 01/14/18 01/14/18 20:50 21:16 Unknown RBC Hgb Hct Plt Count [place] % (Auto) Monocytes % (Manual) Eosinophils % (Manual) Eosinophils # (Manual) PT INR APTT POC ABG pCO2 48.6 H POC ABG pO2 71 L Potassium Chloride Carbon Dioxide BUN Creatinine Glucose POC Glucose 340 H Total Creatine Kinase Albumin Urine Creatinine 130.1 H 01/15/18 01/15/18 01/15/18 05:25 05:25 05:55 RBC 5.16 H Hgb 15.3 H Hct 45.7 H Plt Count 125 L [place] % (Auto) Monocytes % (Manual) 9.0 H Eosinophils % (Manual) 6.0 H Eosinophils # (Manual) 0.5 H PT INR APTT POC ABG pCO2 POC ABG pO2 Potassium Chloride 94.0 L Carbon Dioxide BUN 29 H Creatinine 1.8 H Glucose 250 H POC Glucose 228 H Total Creatine Kinase Albumin 3.2 L Urine Creatinine 01/15/18 01/15/18 10:51 16:23 RBC Hgb Hct Plt Count [place] % (Auto) Monocytes % (Manual) Eosinophils % (Manual) Eosinophils # (Manual) PT INR APTT POC ABG pCO2 POC ABG pO2 Potassium Chloride Carbon Dioxide BUN Creatinine Glucose POC Glucose 328 H 312 H Total Creatine Kinase Albumin Urine Creatinine
--- NOTE | 2018-01-15 18:21 | Progress Note ---
Assessment and Plan Assessment and plan: --Acute on chronic hypoxic respiratory failure; Possible obesity hypoventilation syndrome/obstructive sleep apnea/morbid obesity Oxygen titrate O2 sats to more than 90%, BiPAP as needed Patient needs outpatient sleep study, home oxygen evaluation Resting Room air O2 sats today is 98%, check ABG and ambulatory room air O2 Pulmonary following --Acute exacerbation of COPD; nebulizers and IV steroids and antibiotics Inhalation steroids. Supportive care --Atypical chest pain; nonspecific possible non-cardiac Cardiology following, unable to do stress test due to morbid obesity Continue current cardiac medications --Acute on chronic systolic congestive heart failure; previous LVEF is 30%. continue anti-failure medications, and Output monitoring, low sodium diet, fluid restriction, cardiology following --Hypertension; moderate control, continue current antihypertensives and when necessary medications --Persistent chronic A. fib; now rate controlled Continue currentGene --Chronic anticoagulation; closely monitor INR therapeutic goal between 2 and 3 --Type 2 diabetes mellitus; Accu-Chek sliding scale coverage and ADA diet and insulin as needed --DVT prophylaxis with Lovenox Continue current management Possible discharge in 1-2 days if stable Evaluation for home oxygen and discharge History Interval history: Patient seen and examined medical records reviewed No new events reported by the nursing staff Patient is sitting on the chair, comfortable No new complaints O2 sat room air 98% Denies chest pain, complains of mild shortness of breath Hospitalist Physical - Constitutional Vitals: Temp Pulse Resp BP Pulse Ox 97.9 F 80 20 114/67 93 01/15/18 12:09 01/15/18 13:57 01/15/18 12:09 01/15/18 12:09 01/15/18 12:09 General appearance: Present: no acute distress, well-nourished, obese (morbidly obese) - EENT Eyes: Present: PERRL, EOM intact - Neck Neck: Present: supple, normal ROM - Respiratory Respiratory effort: normal Respiratory: bilateral: diminished, negative: rales, rhonchi, wheezing - Cardiovascular Rhythm: regular Heart Sounds: Present: S1 & S2 - Extremities Extremities: no ischemia, No edema - Abdominal General gastrointestinal: soft, non-tender, non-distended, normal bowel sounds - Integumentary Integumentary: Present: clear, warm - Psychiatric Psychiatric: appropriate mood/affect, cooperative - Neurologic Neurologic: CNII-XII intact, moves all extremities Results - Labs CBC & Chem 7: 01/15/18 05:25 01/15/18 05:25 Labs: Laboratory Last Values WBC 8.3 K/mm3 (4.5-11.0) 01/15/18 05:25 RBC 5.16 M/mm3 (3.65-5.03) H 01/15/18 05:25 Hgb 15.3 gm/dl (11.8-15.2) H 01/15/18 05:25 Hct 45.7 % (35.5-45.6) H 01/15/18 05:25 MCV 89 fl (84-94) 01/15/18 05:25 MCH 30 pg (28-32) 01/15/18 05:25 MCHC 33 % (32-34) 01/15/18 05:25 RDW 14.5 % (13.2-15.2) 01/15/18 05:25 Plt Count 125 K/mm3 (140-440) L 01/15/18 05:25 Lymph % (Auto) Not Reportable 01/15/18 05:25 Elliott % (Auto) Not Reportable 01/15/18 05:25 Eos % (Auto) Not Reportable 01/15/18 05:25 Baso % (Auto) Not Reportable 01/15/18 05:25 Lymph # Not Reportable 01/15/18 05:25 Elliott # Not Reportable 01/15/18 05:25 Eos # Not Reportable 01/15/18 05:25 Baso # Not Reportable 01/15/18 05:25 Add Manual Diff Complete 01/15/18 05:25 Total Counted 100 01/15/18 05:25 Seg Neutrophils % 62.4 % (40.0-70.0) 01/13/18 15:58 Seg Neuts % (Manual) 54.0 % (40.0-70.0) 01/15/18 05:25 Band Neutrophils % 0 % 01/15/18 05:25 Lymphocytes % (Manual) 31.0 % (13.4-35.0) 01/15/18 05:25 Reactive Lymphs % (Man) 0 % 01/15/18 05:25 Monocytes % (Manual) 9.0 % (0.0-7.3) H 01/15/18 05:25 Eosinophils % (Manual) 6.0 % (0.0-4.3) H 01/15/18 05:25 Basophils % (Manual) 0 % (0.0-1.8) 01/15/18 05:25 Metamyelocytes % 0 % 01/15/18 05:25 Myelocytes % 0 % 01/15/18 05:25 Promyelocytes % 0 % 01/15/18 05:25 Blast Cells % 0 % 01/15/18 05:25 Nucleated RBC % Not Reportable 01/15/18 05:25 Seg Neutrophils # Not Reportable 01/15/18 05:25 Seg Neutrophils # Man 4.5 K/mm3 (1.8-7.7) 01/15/18 05:25 Band Neutrophils # 0.0 K/mm3 01/15/18 05:25 Lymphocytes # (Manual) 2.6 K/mm3 (1.2-5.4) 01/15/18 05:25 Abs React Lymphs (Man) 0.0 K/mm3 01/15/18 05:25 Monocytes # (Manual) 0.7 K/mm3 (0.0-0.8) 01/15/18 05:25 Eosinophils # (Manual) 0.5 K/mm3 (0.0-0.4) H 01/15/18 05:25 Basophils # (Manual) 0.0 K/mm3 (0.0-0.1) 01/15/18 05:25 Metamyelocytes # 0.0 K/mm3 01/15/18 05:25 Myelocytes # 0.0 K/mm3 01/15/18 05:25 Promyelocytes # 0.0 K/mm3 01/15/18 05:25 Blast Cells # 0.0 K/mm3 01/15/18 05:25 WBC Morphology Not Reportable 01/15/18 05:25 Hypersegmented Neuts Not Reportable 01/15/18 05:25 Hyposegmented Neuts Not Reportable 01/15/18 05:25 Hypogranular Neuts Not Reportable 01/15/18 05:25 Smudge Cells Not Reportable 01/15/18 05:25 Toxic Granulation Not Reportable 01/15/18 05:25 Toxic Vacuolation Not Reportable 01/15/18 05:25 Dohle Bodies Not Reportable 01/15/18 05:25 Pelger-Huet Anomaly Not Reportable 01/15/18 05:25 Johan Rods Not Reportable 01/15/18 05:25 Platelet Estimate Consistent w auto 01/15/18 05:25 Clumped Platelets Not Reportable 01/15/18 05:25 Plt Clumps, EDTA Not Reportable 01/15/18 05:25 Large Platelets Not Reportable 01/15/18 05:25 Giant Platelets Not Reportable 01/15/18 05:25 Platelet Satelliting Not Reportable 01/15/18 05:25 Plt Morphology Comment Not Reportable 01/15/18 05:25 RBC Morphology Not Reportable 01/15/18 05:25 Dimorphic RBCs Not Reportable 01/15/18 05:25 Polychromasia Not Reportable 01/15/18 05:25 Hypochromasia Not Reportable 01/15/18 05:25 Poikilocytosis Not Reportable 01/15/18 05:25 Anisocytosis Not Reportable 01/15/18 05:25 Microcytosis Not Reportable 01/15/18 05:25 Macrocytosis Not Reportable 01/15/18 05:25 Spherocytes Not Reportable 01/15/18 05:25 Pappenheimer Bodies Not Reportable 01/15/18 05:25 Sickle Cells Not Reportable 01/15/18 05:25 Target Cells Not Reportable 01/15/18 05:25 Tear Drop Cells Not Reportable 01/15/18 05:25 Ovalocytes Not Reportable 01/15/18 05:25 Helmet Cells Not Reportable 01/15/18 05:25 [place] Bodies Not Reportable 01/15/18 05:25 Moro Rings Not Reportable 01/15/18 05:25 [place] Cells Not Reportable 01/15/18 05:25 Bite Cells Not Reportable 01/15/18 05:25 Crenated Cell Not Reportable 01/15/18 05:25 Elliptocytes Not Reportable 01/15/18 05:25 Acanthocytes (Spur) Not Reportable 01/15/18 05:25 Rouleaux Not Reportable 01/15/18 05:25 Hemoglobin C Crystals Not Reportable 01/15/18 05:25 Schistocytes Not Reportable 01/15/18 05:25 Malaria parasites Not Reportable 01/15/18 05:25 Trent Bodies Not Reportable 01/15/18 05:25 Hem Pathologist Commnt No 01/15/18 05:25 PT 30.8 Sec. (12.2-14.9) H 01/13/18 15:58 INR 2.73 (0.87-1.13) H 01/13/18 15:58 APTT 45.4 Sec. (24.2-36.6) H 01/13/18 15:58 POC ABG pH 7.386 (7.35-7.45) 01/14/18 20:50 POC ABG pCO2 48.6 (35-45) H 01/14/18 20:50 POC ABG pO2 71 (80-105) L 01/14/18 20:50 POC ABG HCO3 29.2 01/14/18 20:50 POC ABG Total CO2 31 01/14/18 20:50 POC ABG O2 Sat 94 01/14/18 20:50 POC ABG Base Excess 4 01/14/18 20:50 FiO2 21 % 01/14/18 20:50 Sodium 137 mmol/L (137-145) 01/15/18 05:25 Potassium 4.0 mmol/L (3.6-5.0) D 01/15/18 05:25 Chloride 94.0 mmol/L (98-107) L 01/15/18 05:25 Carbon Dioxide 29 mmol/L (22-30) 01/15/18 05:25 Anion Gap 18 mmol/L 01/15/18 05:25 BUN 29 mg/dL (9-20) H 01/15/18 05:25 Creatinine 1.8 mg/dL (0.8-1.5) H 01/15/18 05:25 Estimated GFR 40 ml/min 01/15/18 05:25 BUN/Creatinine Ratio 16 % 01/15/18 05:25 Glucose 250 mg/dL (75-100) H 01/15/18 05:25 POC Glucose 312 (70-105) H 01/15/18 16:23 Calcium 8.6 mg/dL (8.4-10.2) 01/15/18 05:25 Total Bilirubin 0.50 mg/dL (0.1-1.2) 01/15/18 05:25 AST 28 units/L (5-40) 01/15/18 05:25 ALT 15 units/L (7-56) 01/15/18 05:25 Alkaline Phosphatase 65 units/L (35-129) 01/15/18 05:25 Total Creatine Kinase 200 units/L (55-170) H 01/14/18 12:38 CK-MB (CK-2) 1.6 ng/mL (0.0-4.0) 01/14/18 12:38 CK-MB (CK-2) Rel Index 0.8 (0-4) 01/14/18 12:38 Troponin T 0.011 ng/mL (0.00-0.029) 01/14/18 12:38 Total Protein 6.7 g/dL (6.3-8.2) 01/15/18 05:25 Albumin 3.2 g/dL (3.9-5) L 01/15/18 05:25 Albumin/Globulin Ratio 0.9 % 01/15/18 05:25 Urine Color Yellow (Yellow) 01/14/18 Unknown Urine Turbidity Clear (Clear) 01/14/18 Unknown Urine pH 5.0 (5.0-7.0) 01/14/18 Unknown Ur Specific [place] 1.020 (1.003-1.030) 01/14/18 Unknown Urine Protein <15 mg/dl mg/dL (Negative) 01/14/18 Unknown Urine Glucose (UA) >=500 mg/dL (Negative) 01/14/18 Unknown Urine Ketones Neg mg/dL (Negative) 01/14/18 Unknown Urine Blood Mod (Negative) 01/14/18 Unknown Urine Nitrite Neg (Negative) 01/14/18 Unknown Urine Bilirubin Neg (Negative) 01/14/18 Unknown Urine Urobilinogen < 2.0 mg/dL (<2.0) 01/14/18 Unknown Ur Leukocyte Esterase Neg (Negative) 01/14/18 Unknown Urine WBC (Auto) 3.0 /HPF (0.0-6.0) 01/14/18 Unknown Urine RBC (Auto) 2.0 /HPF (0.0-6.0) 01/14/18 Unknown U Epithel Cells (Auto) < 1.0 /HPF (0-13.0) 01/14/18 Unknown Urine Mucus Few /HPF 01/14/18 Unknown Urine Creatinine 130.1 mg/dL (0.1-20.0) H 01/14/18 Unknown Protein/Creatinin Ratio 40.80 01/14/18 Unknown Urine Sodium 42 mmol/L 01/14/18 Unknown
[2018-01-15 19:51] LABS: Protein/Creatinine Ratio,Urine 0.15
[2018-01-15] MEDS: PRAVACHOL PO SCH (21:40)
[2018-01-16 06:08] LABS: Calcium 8.7 mg/dL (8.4-10.2)
[2018-01-16] MEDS: HumaLOG SUB-Q SCH ×2 (07:39→12:47)
[2018-01-16] MEDS: BROVANA NEBU IH SCH (07:47)
--- NOTE | 2018-01-16 09:11 | Progress Note ---
Assessment and Plan 1. Acute kidney injury: CINTIA is likely Vasomotor / hemodynamically mediated in the setting of hypotension. Renal function continue to improve. Monitor renal function. 2. Hypotension: BP is better. 3. Chest pain: Followed by Cards. 4. Electrolytes: Replete K. Metabolic alkalosis, improving. 5. Systolic CHF. 6. A.fib. Subjective Date of service: 01/16/18 Interval history: Patient is feeling better. Objective - Vital Signs Vital signs: Vital Signs - 12hr 01/15/18 01/16/18 01/16/18 22:00 08:00 08:12 Temperature 97.6 F Pulse Rate 67 53 L Respiratory 18 Rate Blood Pressure 163/86 O2 Sat by Pulse 92 Oximetry - General Appearance General appearance: well-developed, well-nourished, appears stated age, other ( no distres) EENT: ATNC, PERRL, hearing intact, vision intact Neck: supple Respiratory: Present: Clear to Ascultation Cardiology: S1S2, no murmurs Gastrointestinal: normoactive bowel sounds, no tenderness, obese Integumentary: no rash, warm and dry Neurologic: no focal deficit, no asterixis, alert and oriented x3 Musculoskeletal: other (trace pedal edema) Psychiatric: mood/affect appropriate, cooperative - Lab 01/15/18 05:25 01/16/18 04:36 Most recent lab results Calcium 8.7 mg/dL (8.4-10.2) 01/16/18 04:36 Urine Creatinine 130.1 mg/dL (0.1-20.0) H 01/14/18 Unknown Urine Sodium 42 mmol/L 01/14/18 Unknown Urine Total Protein 18.90 mg/dL (5-11.8) H 01/14/18 Unknown
[2018-01-16] MEDS ORDERED: K-DUR PO ONE ×2 (09:29→11:00)
[2018-01-16] MEDS ORDERED: KCL 10MEQ/100ML 10 MEQ/100 ML BAG IV SCH (10:00)
--- NOTE | 2018-01-16 10:27 | Progress Note ---
Assessment and Plan Atypical chest pain resolved Acute renal failure significantly improved Dilated Nonischemic cardiomyopathy Echocardiogram 09/2017 shows a moderate severity cardiomyopathy, ejection fraction 35-40%. [facility] 2014- no significant CAD, LVEF 30%. Afib persistent on coumadin as an outpatient for oral anticoagulation. INR on 2.7 presentation. COPD DM Hypertension AILEEN Morbidly obese Recommendations: Continue medical therapy for nonischemic cardiomyopathy, rate control and oral anticoagulation for atrial fibrillation. Otherwise, conservative cardiac medical management. 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 Will consider amiodarone until then. Stable to DC from cardiac standpoint . Subjective Date of service: 01/16/18 Principal diagnosis: congestive heart failure Interval history: Currently on BIPAP Reports he is doing much better Objective Vital Signs Temp Pulse Pulse Resp Resp BP Pulse Ox 01/16/18 09:33 92 01/16/18 08:12 53 L 18 163/86 92 01/16/18 08:00 97.6 F 01/16/18 07:50 55 L 18 01/16/18 07:40 54 L 18 01/15/18 22:00 67 01/15/18 21:11 96 01/15/18 19:24 98.3 F 64 18 139/53 96 01/15/18 16:17 97.3 F L 59 L 20 147/73 94 01/15/18 13:57 80 01/15/18 12:09 97.9 F 80 20 114/67 93 - Physical Examination Narrative exam: Physical examination Vitals reviewed GEN: Moderately obese HEENT: Carotids 2+ NECK: Supple CVS: S1 and S2 heard no significant murmur or gallop noted LUNGS/CHEST: Normal auscultation ABD: Soft non-tender Extremities: 1 +m edema NEURO: Alert moves all all 4 extremities PSY: Stable General: No Apparent Distress HEENT: Positive: PERRL Neck: Positive: neck supple, trachea midline Neuro: Positive: Grossly Intact - Labs and Meds Comprehensive Metabolic Panel 01/16/18 Range/Units 04:36 Sodium 137 (137-145) mmol/L Potassium 3.0 L D (3.6-5.0) mmol/L Chloride 93.8 L (98-107) mmol/L Carbon Dioxide 30 (22-30) mmol/L BUN 23 H (9-20) mg/dL Creatinine 1.3 (0.8-1.5) mg/dL Glucose 214 H (75-100) mg/dL Calcium 8.7 (8.4-10.2) mg/dL
[2018-01-16] MEDS: CORDARONE PO SCH (10:39)
[2018-01-16] MEDS: ASPIRIN PO SCH (10:39)
[2018-01-16] MEDS: ATIVAN PO SCH (10:39)
[2018-01-16] MEDS: COREG PO SCH (10:39)
[2018-01-16] MEDS: APRESOLINE PO SCH ×2 (10:41→14:22)
--- NOTE | 2018-01-16 12:52 | Progress Note ---
Assessment and Plan Patient alert, awake. Sitting up in chair. O2 saturation 92% on room air. No complaint of chest pain or shortness of breath. - Patient Problems (1) CHF exacerbation Current Visit: No Status: Acute Plan to address problem: Management as per cardiology. (2) Chest pain Current Visit: Yes Status: Acute Plan to address problem: Management as per cardiology. (3) Elevated troponin I level Current Visit: Yes Status: Acute Plan to address problem: Management as per cardiology (4) Atrial fibrillation Current Visit: No Status: Chronic Qualifiers: Plan to address problem: Mangement as per cardiology (5) Morbid obesity with BMI of 50.0-59.9, adult Current Visit: No Status: Chronic Plan to address problem: Recommend to loose weight Weight reduction diet. (6) AILEEN on CPAP Current Visit: No Status: Chronic Plan to address problem: CPAP 13 cm H2O pressure. (7) Diabetes Current Visit: No Status: Acute Plan to address problem: Management as per primary care. (8) Hypertension Current Visit: No Status: Chronic Plan to address problem: Management as per primary care. (9) COPD (chronic obstructive pulmonary disease) Current Visit: No Status: Chronic Plan to address problem: Brovanna/Budesonide aerosol treatments q 12 hours. Subjective Date of service: 01/16/18 Principal diagnosis: congestive heart failure Interval history: Patient alert, awake. Sitting up in chair. O2 saturation 92% on room air. No complaint of chest pain or shortness of breath. Objective Vital Signs - 12hr 01/16/18 01/16/18 01/16/18 07:40 07:50 08:00 Temperature 97.6 F Pulse Rate Pulse Rate [ 54 L 55 L Anterior Bilateral] Pulse Rate [ Apical] Respiratory Rate Respiratory 18 18 Rate [Anterior Bilateral] Blood Pressure O2 Sat by Pulse Oximetry 01/16/18 01/16/18 01/16/18 08:12 09:33 10:00 Temperature Pulse Rate 53 L 66 Pulse Rate [ Anterior Bilateral] Pulse Rate [ 66 Apical] Respiratory 18 Rate Respiratory Rate [Anterior Bilateral] Blood Pressure 163/86 O2 Sat by Pulse 92 92 Oximetry Constitutional: no acute distress, alert, other (Morbidly Obese.) Eyes: non-icteric ENT: oropharynx moist Neck: supple, no JVD Ascultation: Bilateral: diminished breath sounds Cardiovascular: irregular rhythm Gastrointestinal: normoactive bowel sounds, soft, non-tender Integumentary: normal Extremities: no cyanosis, edema (Trace edema.) Neurologic: normal mental status, non-focal exam, pupils equal and round, CN II- XII normal Psychiatric: mood appropriate CBC and BMP: 01/15/18 05:25 01/16/18 04:36 ABG, PT/INR, D-dimer: ABG POC ABG pH 7.386 (7.35-7.45) 01/14/18 20:50 POC ABG pCO2 48.6 (35-45) H 01/14/18 20:50 POC ABG pO2 71 (80-105) L 01/14/18 20:50 POC ABG HCO3 29.2 01/14/18 20:50 POC ABG Total CO2 31 01/14/18 20:50 POC ABG O2 Sat 94 01/14/18 20:50 PT/INR, D-dimer PT 30.8 Sec. (12.2-14.9) H 01/13/18 15:58 INR 2.73 (0.87-1.13) H 01/13/18 15:58 Abnormal lab findings: Abnormal Labs 01/13/18 01/13/18 01/13/18 15:58 15:58 15:58 RBC 5.70 H Hgb 16.9 H Hct 50.6 H Plt Count [place] % (Auto) 7.6 H Monocytes % (Manual) Eosinophils % (Manual) Eosinophils # (Manual) PT 30.8 H INR 2.73 H APTT 45.4 H POC ABG pCO2 POC ABG pO2 Potassium 3.5 L Chloride 92.9 L Carbon Dioxide BUN Creatinine 1.6 H Glucose 253 H POC Glucose Total Creatine Kinase Albumin Urine Creatinine Urine Total Protein 01/14/18 01/14/18 01/14/18 05:04 05:04 06:13 RBC Hgb Hct Plt Count [place] % (Auto) Monocytes % (Manual) Eosinophils % (Manual) Eosinophils # (Manual) PT INR APTT POC ABG pCO2 POC ABG pO2 Potassium 3.3 L Chloride 95.5 L Carbon Dioxide 32 H BUN 26 H Creatinine 2.7 H D Glucose 285 H POC Glucose 239 H Total Creatine Kinase 175 H Albumin Urine Creatinine Urine Total Protein 01/14/18 01/14/18 01/14/18 11:16 12:38 16:40 RBC Hgb Hct Plt Count [place] % (Auto) Monocytes % (Manual) Eosinophils % (Manual) Eosinophils # (Manual) PT INR APTT POC ABG pCO2 POC ABG pO2 Potassium Chloride Carbon Dioxide BUN Creatinine Glucose POC Glucose 285 H 292 H Total Creatine Kinase 200 H Albumin Urine Creatinine Urine Total Protein 01/14/18 01/14/18 01/14/18 20:50 21:16 Unknown RBC Hgb Hct Plt Count [place] % (Auto) Monocytes % (Manual) Eosinophils % (Manual) Eosinophils # (Manual) PT INR APTT POC ABG pCO2 48.6 H POC ABG pO2 71 L Potassium Chloride Carbon Dioxide BUN Creatinine Glucose POC Glucose 340 H Total Creatine Kinase Albumin Urine Creatinine 130.1 H Urine Total Protein 18.90 H 01/15/18 01/15/18 01/15/18 05:25 05:25 05:55 RBC 5.16 H Hgb 15.3 H Hct 45.7 H Plt Count 125 L [place] % (Auto) Monocytes % (Manual) 9.0 H Eosinophils % (Manual) 6.0 H Eosinophils # (Manual) 0.5 H PT INR APTT POC ABG pCO2 POC ABG pO2 Potassium Chloride 94.0 L Carbon Dioxide BUN 29 H Creatinine 1.8 H Glucose 250 H POC Glucose 228 H Total Creatine Kinase Albumin 3.2 L Urine Creatinine Urine Total Protein 01/15/18 01/15/18 01/15/18 10:51 16:23 21:24 RBC Hgb Hct Plt Count [place] % (Auto) Monocytes % (Manual) Eosinophils % (Manual) Eosinophils # (Manual) PT INR APTT POC ABG pCO2 POC ABG pO2 Potassium Chloride Carbon Dioxide BUN Creatinine Glucose POC Glucose 328 H 312 H 294 H Total Creatine Kinase Albumin Urine Creatinine Urine Total Protein 01/16/18 01/16/18 01/16/18 04:36 06:27 11:46 RBC Hgb Hct Plt Count [place] % (Auto) Monocytes % (Manual) Eosinophils % (Manual) Eosinophils # (Manual) PT INR APTT POC ABG pCO2 POC ABG pO2 Potassium 3.0 L D Chloride 93.8 L Carbon Dioxide BUN 23 H Creatinine Glucose 214 H POC Glucose 195 H 251 H Total Creatine Kinase Albumin Urine Creatinine Urine Total Protein
[2018-01-16 13:01] VITALS: BP 134/72
--- NOTE | 2018-01-16 13:13 | Discharge Summary ---
Providers - Providers Date of Admission: 01/14/18 00:32 Date of discharge: 01/16/18 Attending physician: MARÍA ELENA CHRISTIANSEN 01/14/18 06:35 Consult to Physician [CONS] Routine Comment: Consulting Provider: HARMONY SINGH Physician Instructions: Reason For Exam: CHEST PAIN WITH CARDIOMYOPATHY 01/14/18 06:54 Consult to Physician [CONS] Routine Comment: Consulting Provider: SHERRI ROMAN Physician Instructions: Reason For Exam: CINTIA 01/14/18 09:49 Consult to Dietitian/Nutrition [CONS] Routine Physician Instructions: Reason For Exam: Reason for Consult: Diet education 01/14/18 16:31 Consult to Physician [CONS] Routine Comment: Consulting Provider: BE SAMANO Physician Instructions: Reason For Exam: acute on chronic hypoxic resp failure/[facility],AILEEN, Primary care physician: RUFINA ALMEIDA Hospitalization Condition: Stable Disposition: DC-01 TO HOME OR SELFCARE Time spent for discharge: 32 min Core Measure Documentation - Palliative Care Palliative Care/ Comfort Measures: Not Applicable - Core Measures Any of the following diagnoses?: none Exam - Constitutional Vitals: Temp Pulse Resp BP Pulse Ox 97.9 F 60 20 134/72 95 01/16/18 12:00 01/16/18 11:53 01/16/18 11:53 01/16/18 11:53 01/16/18 11:53 General appearance: Present: no acute distress, well-nourished, obese (morbidly obese) - EENT Eyes: Present: PERRL, EOM intact - Neck Neck: Present: supple, normal ROM - Respiratory Respiratory effort: normal Respiratory: bilateral: diminished, wheezing, negative: rales, rhonchi - Cardiovascular Rhythm: regular Heart Sounds: Present: S1 & S2 - Extremities Extremities: no ischemia, No edema - Abdominal General gastrointestinal: Present: soft, non-tender, non-distended - Integumentary Integumentary: Present: clear, warm - Musculoskeletal Musculoskeletal: strength equal bilaterally - Psychiatric Psychiatric: appropriate mood/affect, cooperative - Neurologic Neurologic: CNII-XII intact, moves all extremities Plan Activity: advance as tolerated, fall precautions Diet: diabetic, other (cardiac med) Additional Instructions: CPAP /BiPAP at night Follow up with: RUFINA ALMEIDA MD [Primary Care Provider] - 3-5 Days BE SAMANO MD [Staff Physician] - 7 Days MOHINI LEYVA MD [Staff Physician] - 7 Days
== END 2018-01-16 14:39 | disposition home or self-care (01) | DRG 682 ==
LOC: ED 15:13 → 4A 01-14 00:32
PROVIDERS: ADMIT Internal Medicine; ATTEND Internal Medicine
PROC: 4A033R1 Measurement of Arterial Saturation, Peripheral, Percutaneous Approach (ICD-10-PCS; principal; 2018-01-14)
PROC: 5A09457 Assistance with Respiratory Ventilation, 24-96 Consecutive Hours, Continuous Positive Airway Pressure (ICD-10-PCS; 2018-01-14)
DX: N17.9 Acute kidney failure, unspecified (principal); J96.21 Acute and chronic respiratory failure with hypoxia; I50.23 Acute on chronic systolic (congestive) heart failure; I48.1 Persistent atrial fibrillation; J44.1 Chronic obstructive pulmonary disease with (acute) exacerbation; Z68.44 Body mass index [BMI] 60.0-69.9, adult; I42.0 Dilated cardiomyopathy; I11.0 Hypertensive heart disease with heart failure; E66.01 Morbid (severe) obesity due to excess calories; R07.89 Other chest pain; I25.10 Atherosclerotic heart disease of native coronary artery without angina pectoris; E11.9 Type 2 diabetes mellitus without complications; K21.9 Gastro-esophageal reflux disease without esophagitis; G43.909 Migraine, unspecified, not intractable, without status migrainosus; G40.909 Epilepsy, unspecified, not intractable, without status epilepticus; Z87.442 Personal history of urinary calculi; Z72.89 Other problems related to lifestyle; Z87.891 Personal history of nicotine dependence; Z88.6 Allergy status to analgesic agent; E87.6 Hypokalemia; I48.0 Paroxysmal atrial fibrillation; Z79.01 Long term (current) use of anticoagulants; Z79.82 Long term (current) use of aspirin; Z79.899 Other long term (current) drug therapy; G47.33 Obstructive sleep apnea (adult) (pediatric); I95.9 Hypotension, unspecified; Z79.4 Long term (current) use of insulin
CPT/HCPCS: 36415; 36600; 71045; 76770; 80048; 80053; 81001; 82550; 82553; 82570; 82803; 82962; 83735; 84156; 84300; 84484; 85007; 85025; 85610; 85730; 93005; 93010; 94640; 94660; 96374; 96375; A9270-GY; J1815; J2270; J2405; J3480

== ENCOUNTER 2019-07-05 11:50 | Outpatient (CLI) | payer MEDICARE ==
[2019-07-05 12:37] LABS: INR 2.91 (0.87-1.13)
[2019-07-05 12:38] LABS: Partial Thromboplastin Time 32.6 Sec. (24.2-36.6)
== END 2019-07-05 11:51 | disposition home or self-care (01) ==
LOC: LAB 11:50
PROVIDERS: ATTEND Internal Medicine
DX: I11.0 Hypertensive heart disease with heart failure (principal); I50.9 Heart failure, unspecified; I48.91 Unspecified atrial fibrillation; E66.01 Morbid (severe) obesity due to excess calories; E11.9 Type 2 diabetes mellitus without complications; J44.9 Chronic obstructive pulmonary disease, unspecified; Z88.5 Allergy status to narcotic agent
CPT/HCPCS: 36415; 85610; 85730